=== PATIENT | female | born 1995 | race Caucasian/White ===

== ENCOUNTER 2017-01-02 17:43 | Outpatient (CLI) | payer MEDICAID, OTHER ==
[~2017-01-02] VITALS: Ht 154.9 cm; Wt 73.9 kg
[2017-01-02 18:04] VITALS: BP 123/77
[2017-01-02] MEDS ORDERED: PNV11TAB5 PO (18:40)
[2017-01-02] MEDS ORDERED: DOXY1TAB3 PO (18:43)
[2017-01-02 18:53] VITALS: BP 113/68
--- NOTE | 2017-01-04 14:18 | Physician Query-Final Dx ---
PETER SOMMERS 01/04/17 1418: Clinic Account Progress/Dx Physician Query: Please give diagnosis Date of Service Jan 02, 2017 at 17:43 RODRIGUEZ CORDERO MD 01/05/17 0738: Clinic Account Progress/Dx DIAGNOSIS: Diagnosis decreased movement PETER SOMMERS Jan 04, 2017 14:18 RODRIGUEZ CORDERO MD Jan 05, 2017 07:38
[2017-01-22] MEDS ORDERED: DOCU100C37 PO (08:28)
[2017-01-22] MEDS ORDERED: IBUP-1773 PO (08:28)
[2017-01-22] MEDS ORDERED: OXYC-471 PO (08:28)
[2017-01-22] MEDS ORDERED: FERR-74 PO (08:28)
== END 2017-01-02 19:50 | disposition home or self-care (01) ==
LOC: WSo 17:43 → LDRP 17:46 → WSo 19:50
PROVIDERS: ATTEND Obstetrics & Gynecology
DX: O36.8130 Decreased fetal movements, third trimester, not applicable or unspecified (principal); Z3A.37 37 weeks gestation of pregnancy
CPT/HCPCS: 99213

== ENCOUNTER 2017-01-18 11:56 | Outpatient (CLI) | payer MEDICAID ==
[~2017-01-18] VITALS: Ht 154.9 cm; Wt 75.7 kg
[~2017-01-18 11:56] MED LIST: DOXY1TAB3 PO; PNV11TAB5 PO
[2017-01-18 11:58] VITALS: BP 114/72
[2017-01-18] MEDS ORDERED: D5 LR IV SOLUTION 1,000 ML IV ONE (12:24)
[2017-01-18] MEDS ORDERED: D5 LR IV SOLUTION 1,000 ML IV SCH (12:45)
[2017-01-18 12:57] LABS: BASOPHILS % (AUTO) 0 % (0-10); EOSINOPHILS # (AUTO) 0.1 10^3/uL (0.0-0.3); EOSINOPHILS % (AUTO) 1 % (0-10); LYMPHOCYTES # (AUTO) 1.5 X 10^3 (1.0-4.0); LYMPHOCYTES % (AUTO) 15 % (12-44); MEAN CORPUSCULAR HEMOGLOBIN 30 PG (25-34); MEAN CORPUSCULAR HGB CONC 33 G/DL (32-36); MEAN CORPUSCULAR VOLUME 92 FL (80-99); MEAN PLATELET VOLUME 12.2 FL (7.4-10.4); MONOCYTES # (AUTO) 0.5 X 10^3 (0.0-1.0); MONOCYTES % (AUTO) 5 % (0-12); NEUTROPHILS # (AUTO) 7.9 X 10^3 (1.8-7.8); NEUTROPHILS % (AUTO) 78 % (42-75); PLATELET COUNT 243 10^3/uL (130-400); RED BLOOD COUNT 3.77 10^6/uL (4.35-5.85); RED CELL DISTRIBUTION WIDTH 13.4 % (10.0-14.5); WHITE BLOOD COUNT 10.1 10^3/uL (4.3-11.0)
[2017-01-18 12:58] LABS: BILIRUBIN,URINE NEGATIVE (NEGATIVE); KETONES,URINE NEGATIVE (NEGATIVE); LEUKOCYTE ESTERASE ,URINE 3+ (NEGATIVE); NITRITE,URINE NEGATIVE (NEGATIVE); PH,URINE 7 (5-9); PROTEIN,URINE 1+ (NEGATIVE); UROBILINOGEN,URINE NORMAL (NORMAL)
[2017-01-18 13:16] LABS: CALCIUM OXALATE CRYSTALS,UR RARE /LPF
[2017-01-18 13:24] LABS: PROTEIN/CREATININE RATIO 0.06
[2017-01-18 14:00] VITALS: BP 113/69
[2017-01-18] MEDS ORDERED: FLU TRIvalent (5 YOA+) 2016-17 (AFLURIA) 0.5 ML IM ONE (14:30)
--- NOTE | 2017-01-19 11:24 | Physician Query-Final Dx ---
JAIRO GREEN 01/19/17 1124: Final Diagnosis Give Final Diagnosis Please give Final Diagnosis RODRIGUEZ CORDERO MD 01/19/17 1729: Final Diagnosis Give Final Diagnosis decreased movement JAIRO GREEN Jan 19, 2017 11:24 RODRIGUEZ CORDERO MD Jan 19, 2017 17:29
[2017-01-22] MEDS ORDERED: DOCU100C37 PO (08:28)
[2017-01-22] MEDS ORDERED: FERR-74 PO (08:28)
[2017-01-22] MEDS ORDERED: OXYC-471 PO (08:28)
[2017-01-22] MEDS ORDERED: IBUP-1773 PO (08:28)
== END 2017-01-18 15:23 | disposition home or self-care (01) ==
LOC: WSo 11:56 → LDRP 11:56 → WSo 15:23
PROVIDERS: ATTEND Obstetrics & Gynecology
DX: O36.8130 Decreased fetal movements, third trimester, not applicable or unspecified (principal); Z3A.39 39 weeks gestation of pregnancy
CPT/HCPCS: 36415; 81000; 82570; 84156; 85025; 87088; 96360; 96361; 99214

== ENCOUNTER 2017-01-21 00:41 | Inpatient (IN) | payer MEDICAID ==
[~2017-01-21] VITALS: Ht 154.9 cm; Wt 76.0 kg
[2017-01-21] VITALS (44 sets, daily range): BP systolic 93–153; BP diastolic 52–86
--- OUTSIDE RECORDS SUMMARY | 2017-01-21 00:44 | XMS REPORT | Continuity of Care Document ---
Author Author [facility] [address] [facility] Organization [facility] [address] Address Unknown Phone Unavailable Care Team Providers Care Chief Engineering Division Name Role Phone LIDIA URIBE MD PCP Insurance Providers Payer Name Policy Number Subscriber Name Relationship [facility] [employer] [id number] Lisseth Hernandez 20 Self / Same As Patient Advance Directives Directive Response Recorded Date/Time Advance Directives No 01/18/17 1:00pm Health Care Power of Pool Table Operator No 01/18/17 1:00pm Organ Donor Yes 01/18/17 1:00pm Resuscitation Status Full Code 01/18/17 1:00pm Problems No problem information available. Medications Current Home Medications Medication Dose Units Route Directions Days/Qty Instructions Start Date Vvm993/Fa/Omega3/Dha/Fish Oil 1 Each 1 Each Oral Daily 01/02/17 Past Home Medications Medication Directions Ordered Status Doxylamine/Pyridoxine Hcl 1 Each Tablet.dr, 1 Each Oral Bedtime 01/02/17 Discontinued Social History Social History Problem Response Recorded Date/Time Recent Foreign Travel No 01/18/2017 1:00pm Recent Infectious Disease Exposure No 01/18/2017 1:00pm Smoking Status Former Smoker 01/18/2017 1:00pm Type Used Cigarettes 01/18/2017 1:00pm Query Response Start Date Stop Date Smoking Status Former Smoker Hospital Discharge Instructions No hospital discharge instructions. Plan of Care Discharge Date 01/18/17 3:23pm Instructions/Education Provided OB OUTPATIENT DISCHARGE How to Tell When Labor Starts Prescriptions See Medication Section Functional Status No functional status results. Allergies, Adverse Reactions, Alerts No known allergies. Immunizations Name Given Type FLU TRIvalent 5 years - Adult 01/18/17 Administered Vital Signs Acute Vital Signs Vital Response Date/Time Temperature (Fahrenheit) 97.1 degrees F (97.6 - 99.5) 01/02/2017 6:04pm Temperature (Calculated Celsius) 36.89968 degrees C (36.4 - 37.5) 01/02/2017 6:04pm Temperature Source Tympanic 01/02/2017 6:04pm Pulse Rate (adult) 85 bpm (60 - 90) 01/02/2017 6:53pm Respiratory Rate 18 bpm (12 - 24) 01/02/2017 6:53pm O2 Sat by Pulse Oximetry 98 % (88 - 100) 01/02/2017 6:04pm Blood Pressure 113/68 mm Hg 01/02/2017 6:53pm Blood Pressure Mean 83 mm Hg 01/02/2017 6:53pm Pain Numeric Pain Scale 3 01/18/2017 1:00pm Height (Feet) 5 feet 01/18/2017 1:00pm Height (Inches) 1.00 inches 01/18/2017 1:00pm Height (Calculated Centimeters) 154.771243 cm 01/18/2017 1:00pm Weight (Pounds) 167 pounds 01/18/2017 1:00pm Weight (Ounces) 0.0 oz 01/18/2017 1:00pm Weight (Calculated Grams) 53865.93 gm 01/18/2017 1:00pm Weight (Calculated Kilograms) 75.435305 kilograms 01/18/2017 1:00pm Calculated BMI 31.6 01/18/2017 1:00pm Results Pending Laboratory Results Test Name Collection Date/Time Procedures No known history of procedures. Encounters Encounter Location Arrival/Admit Date Discharge/Depart Date Attending Provider Departed Clinic [facility] [address] 01/18/17 11:56am 01/18/17 3: 23pm RODRIGUEZ CORDERO MD Departed Clinic [facility] [address] 01/02/17 5:43pm 01/02/17 7: 50pm RODRIGUEZ CORDERO MD
[2017-01-21] MEDS ORDERED: MINERAL OIL CONCENTRATE 99.9% 15 ML UDC TOP PRN (02:15)
[2017-01-21] MEDS ORDERED: AMPICILLIN INJECTION 2,000 MG in NS (IVPB) 50 ML IV SCH (02:15)
[2017-01-21] MEDS ORDERED: AMPICILLIN 2000 MG INJECTION (IM/IV) ONE (02:19)
[2017-01-21] MEDS ORDERED: NS (IVPB) 50 ML ONE ×2 (02:20→17:29)
[2017-01-21] MEDS ORDERED: MISOPROSTOL 100 MCG (CYTOTEC) TAB PV SCH (02:30)
[2017-01-21] MEDS: D5 LR IV SOLUTION 1,000 ML IV SCH ×2 (02:47→11:03)
[2017-01-21 03:13] LABS: BILIRUBIN,URINE NEGATIVE (NEGATIVE); KETONES,URINE NEGATIVE (NEGATIVE); LEUKOCYTE ESTERASE ,URINE 2+ (NEGATIVE); NITRITE,URINE NEGATIVE (NEGATIVE); PH,URINE 6 (5-9); PROTEIN,URINE 1+ (NEGATIVE); UROBILINOGEN,URINE NORMAL (NORMAL)
[2017-01-21] MEDS ORDERED: LACTATED RINGERS 1,000 ML IV ONE ×3 (03:15→13:18)
[2017-01-21 03:18] LABS: BASOPHILS % (AUTO) 0 % (0-10); EOSINOPHILS # (AUTO) 0.2 10^3/uL (0.0-0.3); EOSINOPHILS % (AUTO) 1 % (0-10); LYMPHOCYTES # (AUTO) 1.9 X 10^3 (1.0-4.0); LYMPHOCYTES % (AUTO) 15 % (12-44); MEAN CORPUSCULAR HEMOGLOBIN 31 PG (25-34); MEAN CORPUSCULAR HGB CONC 34 G/DL (32-36); MEAN CORPUSCULAR VOLUME 92 FL (80-99); MEAN PLATELET VOLUME 12.4 FL (7.4-10.4); MONOCYTES # (AUTO) 0.8 X 10^3 (0.0-1.0); MONOCYTES % (AUTO) 6 % (0-12); NEUTROPHILS # (AUTO) 9.9 X 10^3 (1.8-7.8); NEUTROPHILS % (AUTO) 77 % (42-75); PLATELET COUNT 247 10^3/uL (130-400); RED BLOOD COUNT 3.59 10^6/uL (4.35-5.85); RED CELL DISTRIBUTION WIDTH 13.7 % (10.0-14.5); WHITE BLOOD COUNT 12.8 10^3/uL (4.3-11.0)
[2017-01-21 03:22] LABS: SQUAMOUS EPITHELIAL CELL,UR 25-50 /HPF; WBC,URINE 25-50 /HPF
[2017-01-21] MEDS ORDERED: CATHETER FLUSH 10 ML SYR IV SCH (06:00)
[2017-01-21] MEDS: AMPICILLIN INJECTION 1,000 MG in NS (IVPB) 50 ML IV SCH ×3 (06:59→15:21)
[2017-01-21] MEDS ORDERED: FLU TRIvalent (5 YOA+) 2016-17 (AFLURIA) 0.5 ML IM ONE (07:15)
--- NOTE | 2017-01-21 08:35 | History & Physical-OB ---
OB - Chief Complaint & HPI Date Date of Admission: Date of Admission: Jan 21, 2017 at 02:07 Chief Complaint/History OB-Reason for Admission/Chief: Onset of Labor Hx : 1 Hx Para: 0 Expected Date of Delivery: Jan 20, 2017 Gestational Age in Weeks: 40 Gestational Age in Days: 1 Other reason for admission: 21 y/o G1 @ 40w1d presenting with CTX Cervix relatively unchanged from office but with painful ctx and at EDC, decision was made to keep pt and augment labor with cytotec SROM occurred around 0600 with clear fluid No VB, fetus active. c/b n/v of , ASB of , GBS+, h/o tobacco use and THC use. History of Labs O+ Antibody neg RI Hep B neg HIV neg RPR NR GBS+ GC/CT neg/neg Allergies and Home Medications Allergies Coded Allergies: No Known Drug Allergies (Unverified , 01/02/17) Home Medications Avo470/FA/Omega3/Dha/Fish Oil 1 Each Tab.chew 1 EACH PO DAILY (Reported) OB - History Hx of Present Care: Yes Ultrasounds: Normal mid trimester US Obstetrical Complications: Other (n/v of , ASB) Medical Complications: Other (h/o THC, tobacco use (none currently, UDS neg on intake in Dec - transferred care from another OBGYN)) Information Induced Hypertension: No Maternal Gestational Diabetes: No Hemorrhage: No Obstetrical History Hx : 1 Hx Para: 0 Hx Total # of Abortions (Spona: 0 Delivery History Adverse Rxn to Tranfusion: No Patient Past Medical History see above Social History/Family History Recent Infectious Disease Expo: No Alcohol Use: Denies Use Recreational Drug Use: No Immunizations Hepatitis A: Yes Hepatitis B: Yes Tetanus Booster (TDap): Less than 5yrs (11/04/16) Rubella: immune RPR/VDRL: Negative GBS Status: Negative HBsAG: Negative OB - Admission Exam Physical Exam Vitals: Vital Signs 01/21/17 01/21/17 02:00 07:00 Temp 98.7 Pulse 87 Resp 16 B/P 117/80 O2 Delivery Room Air HEENT: NCAT Heart: Rhythm Normal Lungs: Clear Abdomen: Gravid Extremities: Normal Reflexes: Normal Cervical Dilatation: 1cm Effacement: 75% Station: -2 Membranes: Ruptured Amniotic Fluid: Clear Heart Rate: 130's Accelerations: Accelerations Present Decelerations: No Decelerations Short Term Variability: Present Mcfp Variability: Average (6-25) Contractions on Admission: < 5 Minutes Apart Labs Laboratory Tests Test 01/21/17 02:15 Range/Units Basophils # (Auto) 0.0 0.0-0.1 10^3/uL Basophils (%) (Auto) 0 0-10 % Eosinophils # (Auto) 0.2 0.0-0.3 10^3/uL Eosinophils (%) (Auto) 1 0-10 % Hematocrit 33 L 35-52 % Hemoglobin 11.2 L 11.5-16.0 G/DL Lymphocytes # (Auto) 1.9 1.0-4.0 X 10^3 Lymphocytes (%) (Auto) 15 12-44 % Mean Corpuscular Hemoglobin 31 25-34 PG Mean Corpuscular Hemoglobin Concent 34 32-36 G/DL Mean Corpuscular Volume 92 80-99 FL Mean Platelet Volume 12.4 H 7.4-10.4 FL Monocytes # (Auto) 0.8 0.0-1.0 X 10^3 Monocytes (%) (Auto) 6 0-12 % Neutrophils # (Auto) 9.9 H 1.8-7.8 X 10^3 Neutrophils (%) (Auto) 77 H 42-75 % Platelet Count 247 130-400 10^3/uL Red Blood Count 3.59 L 4.35-5.85 10^6/uL Red Cell Distribution Width 13.7 10.0-14.5 % Urine Bacteria FEW H /HPF Urine Bilirubin NEGATIVE NEGATIVE Urine Casts NONE /LPF Urine Clarity CLEAR Urine Color YELLOW Urine Crystals NONE /LPF Urine Culture Indicated YES Urine Glucose (UA) NEGATIVE NEGATIVE Urine Ketones NEGATIVE NEGATIVE Urine Leukocyte Esterase 2+ H NEGATIVE Urine Mucus SMALL H /LPF Urine Nitrite NEGATIVE NEGATIVE Urine Protein 1+ H NEGATIVE Urine RBC 10-25 H /HPF Urine RBC (Auto) 4+ H NEGATIVE Urine Specific [place] 1.015 L 1.016-1.022 Urine Squamous Epithelial Cells 25-50 H /HPF Urine Urobilinogen NORMAL NORMAL MG/DL Urine WBC 25-50 H /HPF Urine pH 6 5-9 White Blood Count 12.8 H 4.3-11.0 10^3/uL OB - Assessment/Plan/Diagnosis Plan Other Plan 21 y/o G1 @ 40w1d with latent labor, admitted for augmentation of labor with subsequent SROM. GBS+ H/o THC, tobacco use ASB of Rh+ RI Oral cytotec this AM for cervical ripening (s/p one dose of cytotec overnight vaginally) Ampicillin for GBS ppx ASVD SS consult for h/o THC use LIDIA URIBE MD Jan 21, 2017 08:34
[2017-01-21] MEDS: fentaNYL INJECTION 100 MCG/2 ML AMP IVP PRN ×2 (09:02→10:08)
[2017-01-21] MEDS ORDERED: MISOPROSTOL 100 MCG (CYTOTEC) TAB PO ONE (11:15)
--- NOTE | 2017-01-21 12:44 | Progress Note-Standard ---
Standard Progress Note Progress Notes/Assess & Plan Date Seen 01/21/17 Assess & Plan/Chief Complaint HD#2 Wants epidural Vital Sign - Last 12Hours 01/21/17 01/21/17 01/21/17 01/21/17 02:00 04:00 05:00 06:00 Temp 98.7 Pulse 88 84 90 88 Resp 16 16 16 B/P 128/76 122/74 116/74 120/75 O2 Delivery Room Air Room Air Room Air Room Air 01/21/17 01/21/17 01/21/17 01/21/17 07:00 07:30 08:00 08:30 Temp 99.4 Pulse 87 90 81 93 Resp 16 18 18 18 B/P 117/80 113/64 114/73 121/72 O2 Delivery Room Air Room Air Room Air Room Air 01/21/17 01/21/17 01/21/17 01/21/17 09:00 09:30 10:00 10:30 Pulse 82 87 88 86 Resp 18 20 20 20 B/P 116/74 112/64 123/67 118/72 O2 Delivery Room Air Room Air Room Air Room Air 01/21/17 11:00 Temp 99.1 Pulse 91 Resp 20 B/P 129/75 O2 Delivery Room Air Gen mild distress w ctx SVE 2/80/-2, thin mec noted FHT 145/mod branden/reactive, occasional variables with jolanta > 90 lasting < 60 seconds just after SROM of forebag 21 y/o G1 @ 40w1d with latent labor, admitted for augmentation of labor with subsequent SROM. Meconium stained amniotic fluid GBS+ H/o THC, tobacco use ASB of Rh+ RI S/p oral cytotec at 1100, will recheck around 1500 and start pitocin if not continuing to make cervical change Ampicillin for GBS ppx ASVD Labs Laboratory Tests 01/21/17 02:15 LIDIA URIBE MD Jan 21, 2017 12:44
[2017-01-21] MEDS ORDERED: LIDOCAINE PF 2% 10 ML (XYLOCAINE) AMP ONE ×2 (12:49→17:28)
[2017-01-21] MEDS ORDERED: BUPIVACAINE 0.25% 30 ML (SENSORCAINE) VIAL ONE (12:49)
[2017-01-21] MEDS ORDERED: fentaNYL INJECTION 100 MCG/2 ML AMP ONE ×2 (12:49→17:35)
[2017-01-21] MEDS ORDERED: SUFENTA 0.6MCG/ML BUPIVA 0.125 100 ML ONE (12:54)
[2017-01-21] MEDS ORDERED: ONDANSETRON 4 MG/2 ML (SDV) Z0FRAN IV PRN (13:30)
[2017-01-21] MEDS ORDERED: NALOXONE 0.4 MG/ML 1 ML (NARCAN) VIAL IV PRN (13:30)
[2017-01-21] MEDS ORDERED: EPIDURAL (SUFENTA 0.6MCG/ML BUPIVA 0.125%) 100 ML BAG EPI PRN (13:30)
[2017-01-21] MEDS ORDERED: diphenhydrAMINE 50 MG/ML INJ (BENADRYL) IV PRN (13:30)
[2017-01-21] MEDS ORDERED: OXYTOCIN/NORMAL SALINE 500 ML IV ONE (15:39)
[2017-01-21] MEDS ORDERED: OXYTOCIN/NORMAL SALINE 500 ML IV SCH (15:45)
[2017-01-21] MEDS ORDERED: ONDANSETRON 4 MG/2 ML (SDV) Z0FRAN ONE (17:28)
[2017-01-21] MEDS ORDERED: KETAMINE HCL 100 MG/ML 5 ML VIAL ONE (17:28)
[2017-01-21] MEDS ORDERED: DEXAMETHASONE PF 10 MG/ML (DECADRON) VIAL ONE (17:28)
[2017-01-21] MEDS ORDERED: OXYTOCIN/NORMAL SALINE 1,000 ML IV ONE (17:28)
[2017-01-21] MEDS ORDERED: ceFAZolin 1,000 MG (ANCEF) VIAL ONE (17:29)
[2017-01-21] MEDS ORDERED: KETOROLAC 30 MG/ML VIAL ONE (17:29)
[2017-01-21] MEDS ORDERED: METOCLOPRAMIDE INJ 10 MG/2 ML (REGLAN) IV ONE (17:30)
[2017-01-21] MEDS ORDERED: CITRIC ACID/SOB CIT (BICITRA) 30 ML UDC PO ONE (17:30)
[2017-01-21] MEDS ORDERED: ceFAZolin INJECTION 1,000 MG in NS (IVPB) 50 ML IV ONE (17:30)
[2017-01-21] MEDS ORDERED: LACTATED RINGERS 2,000 ML IV ONE (17:30)
[2017-01-21] MEDS ORDERED: FAMOTIDINE 20MG/2ML IV (PEPCID) IV ONE (17:30)
--- NOTE | 2017-01-21 17:31 | Progress Note-Standard ---
Standard Progress Note Progress Notes/Assess & Plan Date Seen 01/21/17 Assess & Plan/Chief Complaint Update Note I reviewed with Lola and her family the labor course thus far. Unfortunately she has progressed to 4cm, however her fetus is not tolerating labor. The strip is category 2, with recurrent variable decelerations with a late component when pitocin is on. Without pitocin, there are some variable decelerations. We have tried multiple resuscitative measures without improvement. Being remote from delivery, I recommend a delivery. Lisseth understands this and agrees. We reviewed risks including but not limited to bleeding, infection, damage to surrounding structures (infant or mother). Will proceed with CD at this time. Labs Laboratory Tests 01/21/17 02:15 LIDIA URIBE MD Jan 21, 2017 17:31
--- NOTE | 2017-01-21 17:35 | Cesarean Section Operative ---
Procedure Procedure Note Date of Procedure: 01/21/17 Pre-operative Diagnosis: Lisseth Adrian is a 21 y/o G1 @ 40w1d with intolerance to labor, persistent category 2 tracing Augmentation of latent labor GBS+ H/o THC, tobacco use Teen Asymptomatic bacteriuria of Post-operative Diagnosis: Same Procedure: Primary low transverse section Physician: Lulu Gu MD Estimated blood loss: 500 mL Disposition: Recovery room, stable Findings: Viable male , Apgars pending, weight 8lb7oz, intact placenta, 3vc, normal appearing uterus, tubes, and ovaries. Indications:Lisseth Adrian is a 21 y/o G1 @ 40w1d who presented in latent labor. Her labor was augmented with cytotec. She had SROM with meconium stained amniotic fluid. She received an epidural for analgesia. Pitocin was started for augmentation of labor. The fetus had notable recurrent variable decelerations with periods of minimal variability. She pitocin was stopped for over 30 minutes and upon restarting, variable decelerations with a late component were noted. Despite resuscitative measures, the category 2 tracing persisted and she was counseled that being remote from delivery (4cm) it was advised she undergo delivery. Procedure Details: The patient was seen in pre-op and the procedure was discussed with the patient in full, including the risks, benefits, and alternatives. All questions were answered. The patient was taken to the operating room and a time out was performed, verifying patient and procedure. After epidural anesthesia was bolused by our anesthesia colleagues, the patient was placed in the dorsal supine with leftward tilt for uterine displacement. Her abdomen was then prepped and draped in the typical sterile fashion. A Pfannenstiel skin incision was made using a scalpel and carried down through the underlying fascia. The fascia was incised in the midline and tented up using Tyrese clamps. On both the inferior and superior fascia side the rectus muscle was dissected off bluntly and sharply using King scissors. The peritoneum was identified and entered bluntly in the midline. This was then stretched laterally using manual strength. After entering the abdominal cavity and confirming lack of intraperitoneal adhesions, an extra-large Mikhail retractor was placed and the lower uterine segment was visualized. A bladder flap was created with the use of Metzenbaum scissors. A scalpel was utilized to make a low transverse uterine incision. The 's head was grasped and brought to the level of the incision. Fundal pressure was applied and was delivered with some difficulty with the use of the Silastic vacuum device. Mouth and nares were suctioned with bulb suction. After the umbilical cord was clamped and cut, the was handed off to the pediatric staff. A sample of cord blood was then obtained as well as blood gas. The placenta was delivered intact via uterine massage. The uterus was cleared of all clots and debris. The uterine incision was closed using 0 Vicryl in a running locked fashion. A second imbricated layer was placed using 0 Vicryl in a running fashion as well. Again the hysterotomy site was examined and hemostasis was observed. The bilateral tubes and ovaries appeared normal. The abdominal gutters were cleared of all clots and debris. A final check of the uterine incision showed it to be hemostatic. Intercede was placed over the hysterotomy site. The peritoneum was closed using 3-0 Vicryl in a running fashion. The fascia was closed with 0 Vicryl in a running fashion. The subcutaneous space was hemostatic, and irrigated. The subcutaneous space was closed with 3-0 Vicryl in several single interrupted stitches. The skin was then closed using 4-0 Monocryl in a running subcuticular fashion. The skin edges were reapproximated together and were hemostatic. A pressure dressing was applied. All sponge, lap and needle counts were correct at the end of the procedure per nursing. Vitals - Labs Vital Signs - I&O Vital Signs Date Time Temp Pulse Resp B/P Pulse Ox O2 Delivery O2 Flow Rate FiO2 01/21/17 16:30 80 18 123/75 100 Non Rebreather 10.00 01/21/17 16:20 105 18 124/72 100 Non Rebreather 10.00 01/21/17 16:05 100.0 105 18 119/78 98 Room Air 01/21/17 15:50 86 18 126/86 97 Room Air 01/21/17 15:40 88 18 116/65 98 Room Air 01/21/17 15:30 88 18 118/70 100 Non Rebreather 10.00 01/21/17 15:15 79 20 112/63 100 Non Rebreather 10.00 01/21/17 15:00 84 20 115/62 100 Non Rebreather 10.00 01/21/17 14:45 87 18 99/58 99 Room Air 01/21/17 14:30 81 18 95/56 99 Room Air 01/21/17 14:15 90 16 93/54 99 Room Air 01/21/17 14:00 81 16 93/54 98 Room Air 01/21/17 13:55 76 18 101/52 99 Room Air 01/21/17 13:50 80 18 108/55 99 Room Air 01/21/17 13:45 90 18 101/57 99 Room Air 01/21/17 13:40 85 16 153/74 99 Room Air 01/21/17 13:35 109 16 116/63 99 Room Air 01/21/17 13:30 87 16 122/64 99 Room Air 01/21/17 13:25 91 16 119/63 98 Room Air 01/21/17 13:20 90 20 125/71 99 Room Air 01/21/17 13:15 105 20 127/60 99 Room Air 01/21/17 13:10 117 20 139/80 98 Room Air 01/21/17 13:05 106 22 141/77 100 Room Air 01/21/17 13:00 84 20 124/78 Room Air 01/21/17 12:30 87 20 132/78 Room Air 01/21/17 12:00 78 20 120/76 Room Air 01/21/17 11:30 86 20 113/73 Room Air 01/21/17 11:00 99.1 91 20 129/75 Room Air 01/21/17 10:30 86 20 118/72 Room Air 01/21/17 10:00 88 20 123/67 Room Air 01/21/17 09:30 87 20 112/64 Room Air 01/21/17 09:00 82 18 116/74 Room Air 01/21/17 08:30 93 18 121/72 Room Air 01/21/17 08:00 81 18 114/73 Room Air 01/21/17 07:30 99.4 90 18 113/64 Room Air 01/21/17 07:00 87 16 117/80 Room Air 01/21/17 06:00 88 16 120/75 Room Air 01/21/17 05:00 90 16 116/74 Room Air 01/21/17 04:00 84 16 122/74 Room Air 01/21/17 02:00 98.7 88 16 128/76 Room Air Labs Laboratory Tests 01/21/17 02:15: Basophils # (Auto) 0.0, Basophils (%) (Auto) 0, Eosinophils # (Auto) 0.2, Eosinophils (%) (Auto) 1, Hematocrit 33L, Hemoglobin 11.2L, Lymphocytes # (Auto ) 1.9, Lymphocytes (%) (Auto) 15, Mean Corpuscular Hemoglobin 31, Mean Corpuscular Hemoglobin Concent 34, Mean Corpuscular Volume 92, Mean Platelet Volume 12.4H, Monocytes # (Auto) 0.8, Monocytes (%) (Auto) 6, Neutrophils # ( Auto) 9.9H, Neutrophils (%) (Auto) 77H, Platelet Count 247, Red Blood Count 3.59L, Red Cell Distribution Width 13.7, Urine Bacteria FEWH, Urine Bilirubin NEGATIVE, Urine Casts NONE, Urine Clarity CLEAR, Urine Color YELLOW, Urine Crystals NONE, Urine Culture Indicated YES, Urine Glucose (UA) NEGATIVE, Urine Ketones NEGATIVE, Urine Leukocyte Esterase 2+H, Urine Mucus SMALLH, Urine Nitrite NEGATIVE, Urine Protein 1+H, Urine RBC 10-25H, Urine RBC (Auto) 4+H, Urine Specific [place] 1.015L, Urine Squamous Epithelial Cells 25-50H, Urine Urobilinogen NORMAL, Urine WBC 25-50H, Urine pH 6, White Blood Count 12.8H Microbiology 01/21/17 Urine Culture - Preliminary, Resulted LULU GU MD Jan 21, 2017 17:35 LULU GU MD Jan 21, 2017 17:35
--- NOTE | 2017-01-21 17:39 | Discharge Inst-Women's Service ---
Discharge Inst-Women's Serv Depart Medication/Instructions New, Converted or Re-Newed RX: RX on Chart Final Diagnosis TIUP, latent labor, meconium, primary CD, intolerance to labor Consults/Follow Up Additional Follow Up: Yes Orders/Referrals One week with Dr. Gu for incision check [address] Gu for visit Activity Driving Instructions: No Driving for 1 Week (or while taking narcotic pain medications) NO SMOKING: NO SMOKING Nothing Inside Vagina: No Douching, No [place], No Tampons Other Activity No heavy lifting > 10lb, no strenuous activity Diet Discharge Diet: No Restrictions Symptoms to Report to : Bleeding Excessive, Pain Increased, Fever Over 101 Degrees F, Pain/Pressure in Chest, Vaginal Bleeding Increase, Dizziness/Fainting , Nausea/Vomiting, Shortness of Breath For Any Problems or Questions: Contact Your Physician, Go to Emergency Room Skin/Wound Care Infection Signs and Symptoms: Increased Redness, Foul Odor of Wound, Increased Drainage Operative Area Clean and Dry: Keep Incision Clean/Dry Stitches/[place]/Dermabond: Dermabond, Care of Stitches Bathing Instructions: LIDIA Denson MD Jan 21, 2017 17:39
[2017-01-21] MEDS ORDERED: CATHETER FLUSH 10 ML SYR IV PRN (17:45)
[2017-01-21] MEDS ORDERED: ONDANSETRON 4 MG/2 ML (SDV) Z0FRAN IVP PRN (19:00)
[2017-01-21] MEDS ORDERED: MEASLES,MUMPS,RUBELLA 1 EA INJ SC SCH (19:00)
[2017-01-21] MEDS: KETOROLAC 30 MG/ML VIAL IVP SCH ×2 (19:00→23:53)
[2017-01-21] MEDS: OXYTOCIN/NORMAL SALINE 500 ML IV SCH ×2 (19:53→23:53)
[2017-01-21] MEDS: DOCUSATE SODIUM 100 MG (COLACE) CAP PO SCH (20:25)
[2017-01-21] MEDS: oxyCODONE/APAP 5/325MG (PERCOCET 5) TABLET PO PRN (20:26)
[2017-01-21] MEDS: CATHETER FLUSH 10 ML SYR IV SCH (22:00)
[2017-01-22 00:30] VITALS: BP 107/71
[2017-01-22] MEDS: oxyCODONE/APAP 5/325MG (PERCOCET 5) TABLET PO PRN ×3 (04:28→16:23)
[2017-01-22 04:30] VITALS: BP 111/78
[2017-01-22 06:06] LABS: BASOPHILS % (AUTO) 0 % (0-10); EOSINOPHILS % (AUTO) 0 % (0-10); LYMPHOCYTES # (AUTO) 0.8 X 10^3 (1.0-4.0); LYMPHOCYTES % (AUTO) 9 % (12-44); MEAN CORPUSCULAR HEMOGLOBIN 31 PG (25-34); MEAN CORPUSCULAR HGB CONC 33 G/DL (32-36); MEAN CORPUSCULAR VOLUME 93 FL (80-99); MEAN PLATELET VOLUME 11.7 FL (7.4-10.4); MONOCYTES # (AUTO) 0.6 X 10^3 (0.0-1.0); MONOCYTES % (AUTO) 6 % (0-12); NEUTROPHILS # (AUTO) 8.3 X 10^3 (1.8-7.8); NEUTROPHILS % (AUTO) 85 % (42-75); PLATELET COUNT 171 10^3/uL (130-400); RED BLOOD COUNT 2.95 10^6/uL (4.35-5.85); RED CELL DISTRIBUTION WIDTH 13.5 % (10.0-14.5); WHITE BLOOD COUNT 9.7 10^3/uL (4.3-11.0)
[2017-01-22] MEDS: KETOROLAC 30 MG/ML VIAL IVP SCH ×2 (06:35→12:29)
[2017-01-22] MEDS: CATHETER FLUSH 10 ML SYR IV SCH ×2 (06:35→12:29)
--- NOTE | 2017-01-22 08:26 | Postpartum Progress Note ---
Post Op Post-operative Day #1 Subjective: Patient is without complaints. Ambulating, voiding after martínez removed. Tolerating a regular diet without nausea or vomiting. Normal lochia. Pain is well controlled with oral pain medications. Passing flatus. Breast feeding. Objective: Vital Sign - Last 12Hours 01/22/17 01/22/17 00:30 04:30 Temp 98.8 97.3 Pulse 89 105 Resp 18 17 B/P 107/71 111/78 Pulse Ox 94 96 O2 Delivery Room Air Room Air Intake and Output 01/22/17 00:00 Intake Total 550 ml Output Total 575 ml Balance -25 ml Physical Exam: General - Alert and oriented, no apparent distress Abdomen - Soft, appropriately tender to palpation, non-distended, fundus firm at umbilicus Incision - clean, dry and intact; no erythema or induration, no drainage Extremities - trace bilat LE edema, negative Candy's bilaterally Laboratory Tests 01/22/17 05:35: Basophils # (Auto) 0.0, Basophils (%) (Auto) 0, Eosinophils # (Auto) 0.0, Eosinophils (%) (Auto) 0, Hematocrit 27L, Hemoglobin 9.0L, Lymphocytes # (Auto) 0.8L, Lymphocytes (%) (Auto) 9L, Mean Corpuscular Hemoglobin 31, Mean Corpuscular Hemoglobin Concent 33, Mean Corpuscular Volume 93, Mean Platelet Volume 11.7H, Monocytes # (Auto) 0.6, Monocytes (%) (Auto) 6, Neutrophils # ( Auto) 8.3H, Neutrophils (%) (Auto) 85H, Platelet Count 171, Red Blood Count 2.95L, Red Cell Distribution Width 13.5, White Blood Count 9.7 Microbiology 01/21/17 Urine Culture - Preliminary, Resulted Assessment: 21 y/o post-operative day # 1, status post PLTCS for intolerance to labor. Recovering well, hemodynamically stable Acute blood loss anemia 9 Plan: Routine post-operative care. Encourage breast feeding. Encourage ambulation. VTE prophylaxis: SCDs. Ferrous sulfate supplementation. Plan for discharge POD#2 or 3. Vitals - Labs Vital Signs - I&O Vital Signs Date Time Temp Pulse Resp B/P Pulse Ox O2 Delivery O2 Flow Rate FiO2 01/22/17 04:30 97.3 105 17 111/78 96 Room Air 01/22/17 00:30 98.8 89 18 107/71 94 Room Air 01/21/17 20:00 98.6 90 18 109/69 95 Room Air 01/21/17 17:15 85 20 140/86 100 Non Rebreather 10.00 01/21/17 17:00 82 20 124/76 100 Non Rebreather 10.00 01/21/17 16:45 78 20 120/73 100 Non Rebreather 10.00 01/21/17 16:30 80 18 123/75 100 Non Rebreather 10.00 01/21/17 16:20 105 18 124/72 100 Non Rebreather 10.00 01/21/17 16:05 100.0 105 18 119/78 98 Room Air 01/21/17 15:50 86 18 126/86 97 Room Air 01/21/17 15:40 88 18 116/65 98 Room Air 01/21/17 15:30 88 18 118/70 100 Non Rebreather 10.00 01/21/17 15:15 79 20 112/63 100 Non Rebreather 10.00 01/21/17 15:00 84 20 115/62 100 Non Rebreather 10.00 01/21/17 14:45 87 18 99/58 99 Room Air 01/21/17 14:30 81 18 95/56 99 Room Air 01/21/17 14:15 90 16 93/54 99 Room Air 01/21/17 14:00 81 16 93/54 98 Room Air 01/21/17 13:55 76 18 101/52 99 Room Air 01/21/17 13:50 80 18 108/55 99 Room Air 01/21/17 13:45 90 18 101/57 99 Room Air 01/21/17 13:40 85 16 153/74 99 Room Air 01/21/17 13:35 109 16 116/63 99 Room Air 01/21/17 13:30 87 16 122/64 99 Room Air 01/21/17 13:25 91 16 119/63 98 Room Air 01/21/17 13:20 90 20 125/71 99 Room Air 01/21/17 13:15 105 20 127/60 99 Room Air 01/21/17 13:10 117 20 139/80 98 Room Air 01/21/17 13:05 106 22 141/77 100 Room Air 01/21/17 13:00 84 20 124/78 Room Air 01/21/17 12:30 87 20 132/78 Room Air 01/21/17 12:00 78 20 120/76 Room Air 01/21/17 11:30 86 20 113/73 Room Air 01/21/17 11:00 99.1 91 20 129/75 Room Air 01/21/17 10:30 86 20 118/72 Room Air 01/21/17 10:00 88 20 123/67 Room Air 01/21/17 09:30 87 20 112/64 Room Air 01/21/17 09:00 82 18 116/74 Room Air 01/21/17 08:30 93 18 121/72 Room Air I & O 01/22/17 07:00 Intake Total 1850 ml Output Total 875 ml Balance 975 ml Labs Laboratory Tests 01/22/17 05:35: Basophils # (Auto) 0.0, Basophils (%) (Auto) 0, Eosinophils # (Auto) 0.0, Eosinophils (%) (Auto) 0, Hematocrit 27L, Hemoglobin 9.0L, Lymphocytes # (Auto) 0.8L, Lymphocytes (%) (Auto) 9L, Mean Corpuscular Hemoglobin 31, Mean Corpuscular Hemoglobin Concent 33, Mean Corpuscular Volume 93, Mean Platelet Volume 11.7H, Monocytes # (Auto) 0.6, Monocytes (%) (Auto) 6, Neutrophils # ( Auto) 8.3H, Neutrophils (%) (Auto) 85H, Platelet Count 171, Red Blood Count 2.95L, Red Cell Distribution Width 13.5, White Blood Count 9.7 Microbiology 01/21/17 Urine Culture - Preliminary, Resulted LIDIA URIBE MD Jan 22, 2017 08:26
[2017-01-22] MEDS ORDERED: DOCU100C37 PO (08:28)
[2017-01-22] MEDS ORDERED: FERR-74 PO (08:28)
[2017-01-22] MEDS ORDERED: IBUP-1773 PO (08:28)
[2017-01-22] MEDS ORDERED: OXYC-471 PO (08:28)
[2017-01-22 09:02] VITALS: BP 123/75
[2017-01-22] MEDS: FERROUS SULF 325 MG (IRON) TAB PO SCH ×2 (10:13→18:11)
[2017-01-22] MEDS: DOCUSATE SODIUM 100 MG (COLACE) CAP PO SCH (10:13)
--- NOTE | 2017-01-22 10:30 | Anesthesia-Regional Post-Op ---
Regional Patient Condition Mental Status: Alert, Oriented x3 Circulation: Same as Pre-Op Headache: Absent Sensation: Full Recovery Motor Block: Absent Post Op Complications Complications None Follow Up Care/Instructions Patient Instructions None needed. Anesthesia/Patient Condition Patient is doing well, no complaints, stable vital signs, no apparent adverse anesthesia problems. No complications reported per nursing. MAJO WILSON CRNA Jan 22, 2017 10:30
[2017-01-22 12:27] VITALS: BP 121/76
[2017-01-22 16:19] VITALS: BP 123/74
[2017-01-22] MEDS ORDERED: IBUPROFEN 800 MG (MOTRIN) TAB PO SCH (18:00)
[2017-01-22] MEDS: IBUPROFEN 600 MG (MOTRIN) TAB PO SCH (18:11)
[2017-01-22 19:45] VITALS: BP 121/72
[2017-01-23] MEDS: IBUPROFEN 600 MG (MOTRIN) TAB PO SCH ×3 (00:15→14:29)
[2017-01-23] MEDS: DOCUSATE SODIUM 100 MG (COLACE) CAP PO SCH ×2 (00:15→07:43)
[2017-01-23 02:37] VITALS: BP 119/73
[2017-01-23 07:42] VITALS: BP 111/73
[2017-01-23] MEDS: FERROUS SULF 325 MG (IRON) TAB PO SCH (08:21)
--- NOTE | 2017-01-23 10:20 | Postpartum Progress Note ---
Post Op Post-operative Day #2 Subjective: Patient is without complaints. Ambulating, voiding. Tolerating a regular diet without nausea or vomiting. Normal lochia. Pain is well controlled with oral pain medications. Passing flatus. Breast feeding. Objective: Vital Sign - Last 12Hours 01/23/17 01/23/17 02:37 07:42 Temp 98.3 97.6 Pulse 85 80 Resp 18 18 B/P 119/73 111/73 Pulse Ox 97 97 O2 Delivery Room Air Room Air Intake and Output 01/23/17 00:00 Intake Total 600 ml Output Total 800 ml Balance -200 ml Physical Exam: General - Alert and oriented, no apparent distress Abdomen - Soft, appropriately tender to palpation, non-distended, fundus firm at umbilicus Incision - clean, dry and intact; no erythema or induration, no drainage Extremities - no edema, negative Candy's bilaterally Microbiology 01/21/17 Urine Culture - Final, Complete Assessment: 21 y/o post-operative day #2, status post PLTCS for intolerance to labor. Recovering well, hemodynamically stable Acute blood loss anemia 9 Plan: Routine post-operative care. Encourage breast feeding. Encourage ambulation. VTE prophylaxis: SCDs. Ferrous sulfate supplementation. Plan for discharge POD#2 or 3 - will let us know if she would like to go home today. Vitals - Labs Vital Signs - I&O Vital Signs Date Time Temp Pulse Resp B/P Pulse Ox O2 Delivery O2 Flow Rate FiO2 01/23/17 07:42 97.6 80 18 111/73 97 Room Air 01/23/17 02:37 98.3 85 18 119/73 97 Room Air 01/22/17 19:45 98.2 92 18 121/72 98 Room Air 01/22/17 16:19 97.3 105 18 123/74 97 Room Air 01/22/17 12:27 97.7 96 18 121/76 97 Room Air I & O 01/23/17 07:00 Intake Total 600 ml Output Total 800 ml Balance -200 ml Labs Microbiology 01/21/17 Urine Culture - Final, Complete LIDIA URIBE MD Jan 23, 2017 10:20
[2017-01-23 14:28] VITALS: BP 117/79
== END 2017-01-23 16:10 | disposition home or self-care (01) | DRG 765 ==
LOC: WSo 00:41 → LDRP 00:42 → WSo 02:07 → LDRP 02:07
PROVIDERS: ADMIT Obstetrics & Gynecology; ATTEND Obstetrics & Gynecology
PROC: 10D00Z1 Extraction of Products of Conception, Low, Open Approach (ICD-10-PCS; principal; 2017-01-21 17:41)
DX: O62.0 Primary inadequate contractions (principal); O76 Abnormality in fetal heart rate and rhythm complicating labor and delivery; O77.0 Labor and delivery complicated by meconium in amniotic fluid; O26.93 Pregnancy related conditions, unspecified, third trimester; R82.71 Bacteriuria; O90.81 Anemia of the puerperium; D62 Acute posthemorrhagic anemia; O99.824 Streptococcus B carrier state complicating childbirth; Z37.0 Single live birth; Z3A.40 40 weeks gestation of pregnancy
CPT/HCPCS: 36415; 81000; 85025; 86850; 86900; 86901; 87088; 94664; 99212

== ENCOUNTER 2020-07-30 08:40 | Emergency (ER) | payer MEDICAID ==
[~2020-07-30] VITALS: Ht 154.1 cm; Wt 58.6 kg
[~2020-07-30 08:40] MED LIST changes: +DOCU100C37 PO; +FERR325T18 PO; +IBUP-1773 PO; +OXYC-471 PO
[2020-07-30 09:12] LABS: BILIRUBIN,URINE NEGATIVE (NEGATIVE); CLARITY,URINE SL CLOUDY; COLOR,URINE DARK YELLOW; GLUCOSE, URINE (UA) NEGATIVE (NEGATIVE); KETONES,URINE NEGATIVE (NEGATIVE); LEUKOCYTE ESTERASE ,URINE 3+ (NEGATIVE); NITRITE,URINE NEGATIVE (NEGATIVE); PH,URINE 6.5 (5-9); PROTEIN,URINE NEGATIVE (NEGATIVE)
[2020-07-30 09:21] LABS: BACTERIA,URINE MODERATE /HPF; SQUAMOUS EPITHELIAL CELL,UR >50 /HPF; WBC,URINE >100 /HPF
--- NOTE | 2020-07-30 09:31 | NUR ---
CULTURE SWAB GIVEN TO PATIENT TO DO SELF SWAB SENT TO BATHROOM TO OBTAIN.
--- NOTE | 2020-07-30 09:59 | ED Back Pain ---
General Chief Complaint: Back Problems Stated Complaint: BACK PAIN; 10 WKS PREG Nursing Triage Note: AMB TO ROOM IS APX 10 WEEKS PREG ON WEDNESDAY ONSET OF BACK PAIN., CALLED DR CORDERO OFFICE YESTERDAY WAS TOLD BY NURSE IF SHE WAS HURTING THAT BAD JUST GO TO THE ER. . DID LEAVE WORK YESTERDAY. DENIES UTI SYMPTOMS. Nursing Sepsis Screen: No Definite Risk Source of Information: Patient Exam Limitations: No Limitations History of Present Illness Date Seen by Provider: Jul 30, 2020 Time Seen by Provider: 09:14 Initial Comments Here with report of low back pain. Patient is approximately 10 weeks . Denies any specific injury. Does note increased vaginal discharge recently. She is not currently sexually active and has not been since conception. She has been seen and evaluated by her club manager and has negative cultures and has had a normal ultrasound for . Denies vaginal bleeding. Denies dysuria or diarrhea. Timing/Duration: 2-3 Days, Intermittent Severity: Moderate Pain/Injury Location: Back Radiation: Other (none) Method of Injury: Unknown Modifying Factors: Improves With Rest Associated Symptoms: No muscle spasms, No fever, No weakness; lower back pain; No loss of bladder control, No loss of bowel control Allergies and Home Medications Allergies Coded Allergies: No Known Drug Allergies (Unverified , 01/02/17) Home Medications Docusate Sodium 100 Mg Capsule, 100 MG PO BID Prescribed by: LIDIA URIBE on 01/22/17827 Ferrous Sulfate 325 Mg Tablet, 325 MG PO BID WITH MEALS Prescribed by: LIDIA URIBE on 01/22/17827 Ibuprofen 600 Mg Tablet, 600 MG PO Q6H Prescribed by: LIDIA URIBE on 01/22/17827 Oxycodone HCl/Acetaminophen 1 Each Tablet, 1-2 TAB PO Q3H PRN for MODERATE PAIN Prescribed by: LIDIA URIBE on 01/22/17827 [id number]/FA/Omega3/Dha/Fish Oil 1 Each Tab.chew, 1 EACH PO DAILY, (Reported) Patient Home Medication List Home Medication List Reviewed: Yes Review of Systems Constitutional: see HPI; No chills, No fever EENTM: no symptoms reported Respiratory: no symptoms reported Gastrointestinal: abdominal pain (suprapubic); No nausea, No vomiting Genitourinary: discharge; No dysuria, No frequency, No hematuria : Yes Musculoskeletal: back pain; No muscle pain Past Sfdqnql-Notigz-Dgitzm Hx Past Med/Social Hx: Reviewed Nursing Past Med/Soc Hx Patient Social History Alcohol Use: Denies Use Recreational Drug Use: No Smoking Status: Former Smoker Type Used: Cigarettes Former Smoker, Quit: Dec 24, 2016 Recent Foreign Travel: No Contact w/Someone Who Travel: No Recent Infectious Disease Expo: No Recent Hopitalizations: No Immunizations Up To Date Tetanus Booster (TDap): Less than 5yrs PED Vaccines UTD: Yes Seasonal Allergies Seasonal Allergies: No Past Medical History Surgeries: Yes Respiratory: No Cardiac: No Neurological: No Last Menstrual Period: May 08, 2020 Hx : 2 Hx Para: 1 Genitourinary: No Gastrointestinal: No Musculoskeletal: No Endocrine: No HEENT: No Cancer: No Psychosocial: No Integumentary: No Blood Disorders: No Adverse Reaction/Blood Tranf: No Family Medical History Reviewed Nursing Family Hx Physical Exam Vital Signs Vital Signs - First Documented 07/30/20 08:46 Temp 36.4 Pulse 114 Resp 18 B/P (MAP) 148/58 (88) Pulse Ox 100 O2 Delivery Room Air Capillary Refill : Less Than 3 Seconds Height, Weight, BMI Height: 5'1.00" Weight: 167lbs. 8.0oz. [id number]; 24.00 BMI Method: General Appearance: No Apparent Distress, WD/WN Cardiovascular: Regular Rate, Rhythm, No Murmur Respiratory: Lungs Clear, Normal Breath Sounds Gastrointestinal: Soft, Tenderness (suprapubic) Back: Normal Inspection, No Vertebral Tenderness, Other (low back tenderness bilateral) Extremity: Non Tender, No Calf Tenderness Neurologic/Psychiatric: Alert, Oriented x3 Skin: Normal Color, Warm/Dry Progress/Results/Core Measures Results/Orders Lab Results Laboratory Tests Test 07/30/20 09:04 Range/Units Urine Color DARK YELLOW Urine Clarity SL CLOUDY Urine pH 6.5 5-9 Urine Specific [place] 1.020 1.016-1.022 Urine Protein NEGATIVE NEGATIVE Urine Glucose (UA) NEGATIVE NEGATIVE Urine Ketones NEGATIVE NEGATIVE Urine Nitrite NEGATIVE NEGATIVE Urine Bilirubin NEGATIVE NEGATIVE Urine Urobilinogen 0.2 < = 1.0 MG/DL Urine Leukocyte Esterase 3+ H NEGATIVE Urine RBC (Auto) NEGATIVE NEGATIVE Urine RBC NONE /HPF Urine WBC >100 H /HPF Urine Squamous Epithelial Cells >50 H /HPF Urine Crystals NONE /LPF Urine Bacteria MODERATE H /HPF Urine Casts NONE /LPF Urine Mucus NEGATIVE /LPF Urine Culture Indicated YES Micro Results Microbiology 07/30/20 Wet Prep - Final, Complete My Orders Orders - THIERRY PERLA MD Ua Culture If Indicated (07/30/20 08:53) Urine Culture (07/30/20 09:04) Wet Prep (07/30/20 09:23) Us Ob Single Fetus<14 [id number] (07/30/20 09:59) Vital Signs/I&O 07/30/20 08:46 Temp 36.4 Pulse 114 Resp 18 B/P (MAP) 148/58 (88) Pulse Ox 100 O2 Delivery Room Air Blood Pressure Mean: 88 Progress Progress Note : Progress Note Seen and evaluated. UA ordered. Self administer vaginal swab ordered for wet prep. Monitor patient. Patient has not got formal ultrasound here so we will go ahead and order that as well. 1114: Wet prep is positive for bacterial vaginosis. Ultrasound done and shows IUP with appropriate heart rate. Discharged home with return precautions. Patient verbalize understanding instructions and agreement with plan. Diagnostic Imaging Diagonstic Imaging: Ultrasound Plain Films/CT/US/NM/MRI: pelvis Comments [facility], [place] NAME: HALEIGH HERNANDEZ [facility] REC#: [id number] PT STATUS: REG ER : 1995 PHYSICIAN: THIERRY PERLA MD ADMIT DATE: 07/30/20/ER Draft Date of Exam:07/30/20 US OB SINGLE FETUS<14 [id number] PROCEDURE: US OB SINGLE FETUS <14 WKS. TECHNIQUE: Multiple real-time grayscale images were obtained over the gravid uterus in various projections. INDICATION: Lower abdominal pain during . COMPARISON: None available. FINDINGS: There is a gestational sac with a normal morphology. Appropriate position within the upper uterus. The fetus is present with a crown-rump length of 3.7 cm giving an ultrasound age of 10 weeks and 4 days. This gives an estimated due date of 02/21/2021. heart rate is detected at 163 bpm. No zohreh-gestational hemorrhage is appreciated. Both ovaries are visualized and normal in appearance. The right ovary measures 3.3 x 1.5 x 2.8 cm. The left ovary measures 2.0 x 0.9 x 1.6 cm. Blood flow is seen in both ovaries by color Doppler imaging. No concerning adnexal mass or fluid collection. IMPRESSION: 1. Single live intrauterine with a heart rate of 163 bpm. Dictated on workstation # [id number] Dict: 07/30/20 1103 Trans: 07/30/20 1108 [facility] [id number] Interpreted by: YAIR PARMAR MD Electronically signed by: Departure Impression Primary Impression: Bacterial vaginosis Disposition: HOME, SELF-CARE Condition: Improved Departure-Patient Inst. Decision time for Depature: 11:15 Referrals: RODRIGUEZ CORDERO MD Patient Instructions: Bacterial Vaginosis Add. Discharge Instructions: All discharge instructions reviewed with patient and/or family. Voiced understanding. Take medications as directed. Follow-up with your OB doctor for recheck and further evaluation. Call his office for appointment. You may take Tylenol/acetaminophen 1000 mg every 6-8 hours as needed for pain. Drink plenty of fluids and get some rest. Try to eat a normal diet. Scripts Metronidazole (Metronidazole) 500 Mg Tablet 500 MG PO BID, #14 TAB 0 Refills Prov: THIERRY PERLA MD 07/30/20 Copy Copies To 1: RODRIGUEZ CORDERO MD, TIMOTHY D MD Jul 30, 2020 09:59
--- NOTE | 2020-07-30 11:09 | Diagnostic Imaging Report ---
PROCEDURE: US OB SINGLE FETUS <14 WKS. TECHNIQUE: Multiple real-time grayscale images were obtained over the gravid uterus in various projections. INDICATION: Lower abdominal pain during . COMPARISON: None available. FINDINGS: There is a gestational sac with a normal morphology. Appropriate position within the upper uterus. The fetus is present with a crown-rump length of 3.7 cm giving an ultrasound age of 10 weeks and 4 days. This gives an estimated due date of 02/21/2021. heart rate is detected at 163 bpm. No zohreh-gestational hemorrhage is appreciated. Both ovaries are visualized and normal in appearance. The right ovary measures 3.3 x 1.5 x 2.8 cm. The left ovary measures 2.0 x 0.9 x 1.6 cm. Blood flow is seen in both ovaries by color Doppler imaging. No concerning adnexal mass or fluid collection. IMPRESSION: 1. Single live intrauterine with a heart rate of 163 bpm. Dictated by: Dictated on workstation # [id number]
[2020-07-30] MEDS ORDERED: METR-145 PO (11:16)
[2020-07-30 11:51] VITALS: BP 148/58
== END 2020-07-30 11:53 | disposition home or self-care (01) ==
LOC: EDUNIT# 08:40 → ER 08:43
DX: O26.891 Other specified pregnancy related conditions, first trimester (principal); N76.0 Acute vaginitis; Z3A.10 10 weeks gestation of pregnancy; Z87.891 Personal history of nicotine dependence
CPT/HCPCS: 76801; 81000; 87088; 87210; 99282

== ENCOUNTER 2020-11-07 09:28 | Outpatient (CLI) | payer MEDICAID ==
[~2020-11-07] VITALS: Ht 154.9 cm; Wt 62.7 kg
[~2020-11-07 09:28] MED LIST changes: +METR-145 PO
--- NOTE | 2020-11-07 09:35 | NUR ---
HALEIGH HERNANDEZ presented to unit via AMBULATORY from ED, with c/o DECREASED MOVEMENT. HALEIGH HERNANDEZ weighed, gowned, voided, and to bed. EFHM and TOCO applied, VS taken. HALEIGH HERNANDEZ oriented to bed controls, call light, TV, heat, and A/C controls.
[2020-11-07 09:53] VITALS: BP 106/55
[2020-11-07 09:59] VITALS: BP 106/55
--- NOTE | 2020-11-07 10:13 | NUR ---
DR. CORDERO IS ON THE UNIT, NOTIFIED OF PT'S ARRIVAL, C/O, GESTATION, REVIEW OF STRIP. WILL CONTINUE TO MONITOR FOR REACTIVITY.
--- NOTE | 2020-11-07 10:32 | NUR ---
DR. CORDERO TO PT'S BEDSIDE.
--- NOTE | 2020-11-07 10:40 | NUR ---
DR. CORDERO INFORMED THIS RN THAT PT MAY BE DISCHARGED HOME.
--- NOTE | 2020-11-07 10:46 | NUR ---
DISCHARGE PAPERS PROVIDED AND REVIEWED WITH PT, PT VERBALIZES UNDERSTANDING AND YANELI ANY QUESTIONS AT THIS TIME. PAPER SIGNED. PT DISCHARGED FROM -[id number] TO [facility] VIA AMBULATORY IN STABLE CONDITION.
--- NOTE | 2020-11-11 08:40 | Physician Query-Final Dx ---
Clinic Account Progress/Dx Physician Query: Please give diagnosis Please include # weeks gestation Date of Service Nov 07, 2020 at 09:28 ORALIA MEEKS Nov 11, 2020 08:40
== END 2020-11-07 10:46 | disposition home or self-care (01) ==
LOC: WSo 09:28 → LDRP 09:29 → WSo 10:46
PROVIDERS: ATTEND Obstetrics & Gynecology
DX: Z34.90 Encounter for supervision of normal pregnancy, unspecified, unspecified trimester (principal); Z3A.00 Weeks of gestation of pregnancy not specified
CPT/HCPCS: 99212

== ENCOUNTER 2020-11-25 11:10 | Observation (INO) | payer MEDICAID ==
[2020-11-25] VITALS (7 sets, daily range): BP systolic 97–111; BP diastolic 55–63
[~2020-11-25] VITALS: Ht 154.9 cm; Wt 64.2 kg
--- NOTE | 2020-11-25 11:15 | NUR ---
HALEIGH HERNANDEZ presented to unit via from ED, with c/o DECREASED MOVEMENT. HALEIGH HERNANDEZ weighed, gowned, voided, and to bed. EFHM and TOCO applied, VS taken. HALEIGH HERNANDEZ oriented to bed controls, call light, TV, heat, and A/C controls.
--- NOTE | 2020-11-25 12:06 | NUR ---
Dr. Cordon called and notified of pt arrival to unit. Pt is due 02/23 (27.1wks) presenting with decreased movement x 1.5days. Pt also reports having a fever off and on, cough, chest tightness, sore throat, fatigue x1 week. Pt reports having an exposure to COVID two weeks ago today, and presented to urgent care last Wednesday (11/19) for a COVID test, which was negative. notified of SVE, urine dipstick, FHR, and ctx pattern. Orders rec'd for labs and IV.
[2020-11-25] MEDS ORDERED: D5 LR IV SOLUTION 1,000 ML IV ONE (12:14)
[2020-11-25 12:59] LABS: CLARITY,URINE TURBID; COLOR,URINE ORANGE; GLUCOSE, URINE (UA) NEGATIVE (NEGATIVE); KETONES,URINE NEGATIVE (NEGATIVE); LEUKOCYTE ESTERASE ,URINE NEGATIVE (NEGATIVE); NITRITE,URINE NEGATIVE (NEGATIVE); PH,URINE 5.5 (5-9); PROTEIN,URINE TRACE (NEGATIVE)
[2020-11-25 13:05] LABS: BASOPHILS # (AUTO) 0.1 10^3/uL (0.0-0.1); BASOPHILS % (AUTO) 1 % (0-10); EOSINOPHILS % (AUTO) 0 % (0-10); HEMATOCRIT 30 % (35-52); HEMOGLOBIN 9.7 g/dL (11.5-16.0); LYMPHOCYTES # (AUTO) 6.4 10^3/uL (1.0-4.0); LYMPHOCYTES % (AUTO) 71 % (12-44); MEAN CORPUSCULAR HEMOGLOBIN 31 pg (25-34); MEAN CORPUSCULAR HGB CONC 32 g/dL (32-36); MEAN CORPUSCULAR VOLUME 95 fL (80-99); MONOCYTES # (AUTO) 0.3 10^3/uL (0.0-1.0); MONOCYTES % (AUTO) 3 % (0-12); NEUTROPHILS # (AUTO) 2.2 10^3/uL (1.8-7.8); NEUTROPHILS % (AUTO) 24 % (42-75); PLATELET COUNT 192 10^3/uL (130-400); WHITE BLOOD COUNT 9.1 10^3/uL (4.3-11.0)
[2020-11-25 13:14] LABS: BACTERIA,URINE NEGATIVE /HPF; RBC,URINE RARE /HPF
[2020-11-25 13:15] LABS: AMORPHOUS SEDIMENT,UR MOD AMOR URATES /LPF; BILIRUBIN,URINE 1+ (NEGATIVE)
[2020-11-25 13:21] LABS: ALANINE AMINOTRANSFERASE 61 U/L (0-55); ALBUMIN 2.4 GM/DL (3.2-4.5); ALKALINE PHOSPHATASE 176 U/L (40-136); BILIRUBIN,TOTAL 0.6 MG/DL (0.1-1.0); BUN/CREATININE RATIO 12; CALCIUM 7.8 MG/DL (8.5-10.1); CARBON DIOXIDE 25 MMOL/L (21-32); CHLORIDE 105 MMOL/L (98-107); GFR ESTIMATED > 60; GLUCOSE 88 MG/DL (70-105); POTASSIUM 3.8 MMOL/L (3.6-5.0); SODIUM 134 MMOL/L (135-145); TOTAL PROTEIN 5.7 GM/DL (6.4-8.2); URIC ACID 4.2 MG/DL (2.6-7.2)
--- NOTE | 2020-11-25 14:00 | NUR ---
Dr. Cordon called and lab results reported. Orders rec'd to keep pt overnight, repeat labs in AM, NST q shift. Pt may have regular diet.
[2020-11-25 14:02] LABS: BAND NEUTROPHILS 9 %; BASOPHILS % (MANUAL) 0 %; EOSINOPHILS % (MANUAL) 1 %; LYMPHOCYTES % (MANUAL) 63 %; MONOCYTES % (MANUAL) 6 %; NEUTROPHILS % (MANUAL) 21 %; RBC MORPH NORMAL
--- NOTE | 2020-11-25 14:20 | NUR ---
Pt c/o heartburn. notified, orders rec'd for tums and pepcid.
[2020-11-25] MEDS ORDERED: CALCIUM CARBONATE 500 MG (TUMS) TAB.CHEW PO PRN (14:30)
[2020-11-25] MEDS: D5 LR IV SOLUTION 1,000 ML IV SCH (14:59)
--- NOTE | 2020-11-25 18:15 | NUR ---
To room to delivery dinner tray and give requested Pepcid. Pt reports starting to feel worse, chilling. Pt noted to be coughing more at this time. VS taken, see intervention.
--- NOTE | 2020-11-25 19:50 | NUR ---
PT REPORTS VERY TIRED, BUT UNABLE TO GET COMFORTABLE IN BED. DENIES ANY FURTHER NEEDS AT THIS TIME. INSTRUCTED TO CALL WITH ANY NEEDS.
[2020-11-25] MEDS ORDERED: FAMOTIDINE 20MG/2ML IV (PEPCID) IVP SCH (21:00)
[2020-11-26] VITALS: BP 106/57
--- NOTE | 2020-11-26 | NUR ---
PT REPORTS SHE IS FEELING SLIGHTLY BETTER AND IS HUNGRY. SANDWICH BOX AND COKE GIVEN PER REQUEST.
[2020-11-26] MEDS: D5 LR IV SOLUTION 1,000 ML IV SCH (00:02)
--- NOTE | 2020-11-26 02:30 | NUR ---
PT RESTING SOUNDLY. NO S/S OF DISTRESS OR DISCOMFORT NOTED.
--- NOTE | 2020-11-26 04:00 | NUR ---
PT SLEEPING SOUNDLY. NO S/S OF DISTRESS OR DISCOMFORT NOTED.
--- NOTE | 2020-11-26 05:15 | NUR ---
LAB HERE FOR AM LABS.
[2020-11-26 05:25] VITALS: BP 101/58
[2020-11-26 05:44] LABS: BASOPHILS # (AUTO) 0.1 10^3/uL (0.0-0.1); BASOPHILS % (AUTO) 1 % (0-10); EOSINOPHILS % (AUTO) 1 % (0-10); HEMATOCRIT 28 % (35-52); HEMOGLOBIN 9.2 g/dL (11.5-16.0); LYMPHOCYTES # (AUTO) 5.8 10^3/uL (1.0-4.0); LYMPHOCYTES % (AUTO) 73 % (12-44); MEAN CORPUSCULAR HEMOGLOBIN 31 pg (25-34); MEAN CORPUSCULAR HGB CONC 33 g/dL (32-36); MEAN CORPUSCULAR VOLUME 96 fL (80-99); MEAN PLATELET VOLUME 11.4 fL (9.0-12.2); MONOCYTES # (AUTO) 0.3 10^3/uL (0.0-1.0); MONOCYTES % (AUTO) 4 % (0-12); NEUTROPHILS # (AUTO) 1.7 10^3/uL (1.8-7.8); NEUTROPHILS % (AUTO) 21 % (42-75); PLATELET COUNT 190 10^3/uL (130-400); WHITE BLOOD COUNT 7.9 10^3/uL (4.3-11.0)
[2020-11-26 06:07] LABS: ALBUMIN 2.2 GM/DL (3.2-4.5); CHLORIDE 107 MMOL/L (98-107); SODIUM 134 MMOL/L (135-145)
[2020-11-26 06:08] LABS: CALCIUM 7.6 MG/DL (8.5-10.1)
[2020-11-26 06:09] LABS: GLUCOSE 93 MG/DL (70-105)
[2020-11-26 06:11] LABS: BILIRUBIN,TOTAL 0.6 MG/DL (0.1-1.0); CARBON DIOXIDE 22 MMOL/L (21-32)
[2020-11-26 06:13] LABS: ALKALINE PHOSPHATASE 162 U/L (40-136); CREATININE SERUM 0.58 MG/DL (0.60-1.30); GFR ESTIMATED > 60
[2020-11-26 06:14] LABS: BUN/CREATININE RATIO 9
[2020-11-26 06:16] LABS: ALANINE AMINOTRANSFERASE 51 U/L (0-55)
--- NOTE | 2020-11-26 07:15 | NUR ---
Dr. Cordon here to see pt. Orders for discharge rec'd.
--- NOTE | 2020-11-26 07:19 | History & Physical ---
History and Physical Date Seen by Provider: Nov 26, 2020 Time Seen by Provider: 07:14 This patient is a 25-year-old gravid patient at 29 weeks gestation. She presented last evening with complaints abdominal pain and episodic shortness of breath primarily in the evenings. She denied loss of smell or loss of taste. She reports having had elevated temperatures at home. She has had some issues with diarrhea as well. She denies dysuria or dyschezia. She was admitted for observation and hydrated and through the evening reports now that she feels markedly better. Covid -19 swab obtained on admission due to the nature of her symptoms has returned a negative result. Patient denies rupture membranes or bleeding. She does feel baby moving. She denies contractions. Allergies are none Medications are vitamins Medical social and surgical histories are per this patient's antepartum record Vital Signs Date Time Temp Pulse Resp B/P (MAP) Pulse Ox O2 Delivery O2 Flow Rate FiO2 11/26/20 05:25 36.7 88 18 101/58 (72) 100 Room Air 11/26/20 00:00 Room Air 11/26/20 00:00 37.0 100 18 106/57 (73) 99 Room Air 11/25/20 18:17 37.6 114 20 111/55 (73) 98 Room Air 11/25/20 15:00 37.2 105 20 108/57 (74) Room Air 11/25/20 12:40 113 18 105/63 (77) Room Air 11/25/20 12:25 105 18 102/59 (73) 100 Room Air 11/25/20 12:10 107 18 97/61 (73) 97 Room Air 11/25/20 11:55 107 18 103/56 (72) 97 Room Air 11/25/20 11:30 36.3 109 20 99 Room Air 11/25/20 11:30 36.3 109 20 99 Room Air 11/25/20 11:30 100 Room Air Vital signs are stable. Patient is afebrile. Lab work is as follows Laboratory Tests Test 11/25/20 12:30 11/25/20 12:35 11/25/20 12:45 11/26/20 05:20 Range/Units Urine Color ORANGE Urine Clarity TURBID Urine pH 5.5 5-9 Urine Specific [place] 1.025 H 1.016-1.022 Urine Protein 36 H 6-12 MG/DL Urine Glucose (UA) NEGATIVE NEGATIVE Urine Ketones NEGATIVE NEGATIVE Urine Nitrite NEGATIVE NEGATIVE Urine Bilirubin 1+ H NEGATIVE Urine Urobilinogen 1.0 < = 1.0 MG/DL Urine Leukocyte Esterase NEGATIVE NEGATIVE Urine RBC (Auto) NEGATIVE NEGATIVE Urine RBC RARE /HPF Urine WBC NONE /HPF Urine Squamous Epithelial Cells 10-25 H /HPF Urine Crystals PRESENT H /LPF Urine Amorphous Sediment MOD [place] URATES H /LPF Urine Bacteria NEGATIVE /HPF Urine Casts NONE /LPF Urine Mucus NEGATIVE /LPF Urine Culture Indicated NO Urine Creatinine 192 H 30-125 MG/DL Urine Protein/Creatinine Ratio 0.19 Coronavirus (COVID-19)(PCR) Negative Negative White Blood Count 9.1 7.9 4.3-11.0 10^3/uL Red Blood Count 3.15 L 2.95 L 3.80-5.11 10^6/uL Hemoglobin 9.7 L 9.2 L 11.5-16.0 g/dL Hematocrit 30 L 28 L 35-52 % Mean Corpuscular Volume 95 96 80-99 fL Mean Corpuscular Hemoglobin 31 31 25-34 pg Mean Corpuscular Hemoglobin Concent 32 33 32-36 g/dL Red Cell Distribution Width 14.6 H 14.7 H 10.0-14.5 % Platelet Count 192 190 130-400 10^3/uL Mean Platelet Volume 12.0 11.4 9.0-12.2 fL Immature Granulocyte % (Auto) 1 1 % Neutrophils (%) (Auto) 24 L 21 L 42-75 % Lymphocytes (%) (Auto) 71 H 73 H 12-44 % Monocytes (%) (Auto) 3 4 0-12 % Eosinophils (%) (Auto) 0 1 0-10 % Basophils (%) (Auto) 1 1 0-10 % Neutrophils # (Auto) 2.2 1.7 L 1.8-7.8 10^3/uL Lymphocytes # (Auto) 6.4 H 5.8 H 1.0-4.0 10^3/uL Monocytes # (Auto) 0.3 0.3 0.0-1.0 10^3/uL Eosinophils # (Auto) 0.0 0.0 0.0-0.3 10^3/uL Basophils # (Auto) 0.1 0.1 0.0-0.1 10^3/uL Immature Granulocyte # (Auto) 0.1 0.1 0.0-0.1 10^3/uL Neutrophils % (Manual) 21 % Lymphocytes % (Manual) 63 % Monocytes % (Manual) 6 % Eosinophils % (Manual) 1 % Basophils % (Manual) 0 % Band Neutrophils 9 % Blood Morphology Comment NORMAL Sodium Level 134 L 134 L 135-145 MMOL/L Potassium Level 3.8 4.0 3.6-5.0 MMOL/L Chloride Level 105 107 98-107 MMOL/L Carbon Dioxide Level 25 22 21-32 MMOL/L Anion Gap 4 L 5 5-14 MMOL/L Blood Urea Nitrogen 7 5 L 7-18 MG/DL Creatinine 0.60 0.58 L 0.60-1.30 MG/DL Estimat Glomerular Filtration Rate > 60 > 60 BUN/Creatinine Ratio 12 9 Glucose Level 88 93 70-105 MG/DL Uric Acid 4.2 2.6-7.2 MG/DL Calcium Level 7.8 L 7.6 L 8.5-10.1 MG/DL Corrected Calcium 9.1 9.0 8.5-10.1 MG/DL Total Bilirubin 0.6 0.6 0.1-1.0 MG/DL Aspartate Amino Transf (AST/SGOT) 65 H 53 H 5-34 U/L Alanine Aminotransferase (ALT/SGPT) 61 H 51 0-55 U/L Alkaline Phosphatase 176 H 162 H 40-136 U/L Lactate Dehydrogenase 430 H 367 H 125-220 U/L Total Protein 5.7 L 5.0 L 6.4-8.2 GM/DL Albumin 2.4 L 2.2 L 3.2-4.5 GM/DL HEENT exam is normal Neck is supple no lymphadenopathy no thyromegaly The abdomen is gravid and benign. The fundus is nontender. There is no guarding or rebound. Extremities show no clubbing or cyanosis. There is no Homans' sign. Pelvic exam was deferred Assessment and plan this patient's history and presentation are most consistent with a viral gastroenteritis. Her liver enzymes were elevated on admission there is still elevated but are decreasing as is her the LDH, and we will follow the lab workup in clinic. Her blood pressures have been normal. This patient has remained afebrile since admission. We will allow discharge home with follow-up in clinic Viral gastroenteritis Allergies and Home Medications Allergies Coded Allergies: No Known Drug Allergies (Unverified , 01/02/17) Home Medications Mjb041/FA/Omega3/Dha/Fish Oil 1 Each Tab.chew, 1 EACH PO DAILY, (Reported) Patient Home Medication List Home Medication List Reviewed: Yes RODRIGUEZ CORDERO MD Nov 26, 2020 07:19
--- NOTE | 2020-11-26 07:29 | Discharge Inst-Surgical ---
Discharge Inst-Surgical Depart Medication/Instructions New, Converted or Re-Newed RX: Other Consults/Follow Up Patient Instructions: As directed Orders & Referrals Return to clinic as scheduled for OB follow-up Return to clinic for any recurrence of symptoms or signs symptoms or indications of labor Activity Activity as Tolerated: Yes Diet Discharge Diet: No Restrictions RODRIGUEZ CORDERO MD Nov 26, 2020 07:29
[2020-11-26 08:25] VITALS: BP 108/56
--- NOTE | 2020-11-26 09:16 | NUR ---
Discharge instructions explained to pt with copy provided to pt. Pt verbalizes understanding of instructions and signs to verify. IV removed, tip intact. Pt ambulates off unit to private vehicle with all personal belongings. No s/s of distress noted. Addendum: 11/26/20 at 1105 by JUAN DIAZ RN Reactive NST obtained.
== END 2020-11-26 09:16 | disposition home or self-care (01) ==
LOC: WSo 11:10 → LDRP 11:11 → WSo 11:11 → LDRP 11:15 → UNDOADMOB 14:05 → LDRP 14:05 → WSo 14:05 → UNDODISOB 11-26 09:16 → EDSTATUS 11-29 07:40
PROVIDERS: ADMIT Obstetrics & Gynecology; ATTEND Obstetrics & Gynecology
DX: Z34.93 Encounter for supervision of normal pregnancy, unspecified, third trimester (principal); Z3A.29 29 weeks gestation of pregnancy
CPT/HCPCS: 80053 ×2; 81000; 82570; 83615 ×2; 84156; 84550; 85007; 85025; 85027; 96361 ×2; 96374; G0378; G0379; U0002; 36415; 87635; 99211

== ENCOUNTER 2020-11-28 11:02 | Outpatient (CLI) | payer MEDICAID ==
[~2020-11-28] VITALS: Ht 154.9 cm; Wt 66.3 kg
--- NOTE | 2020-11-28 11:00 | NUR ---
HALEIGH HERNANDEZ presented to unit via ambulation from ED, accompanied by self, with c/o SWELLING. HALEIGH HERNANDEZ weighed, gowned, voided, and to bed. EFHM and TOCO applied, VS taken. HALEIGH HERNANDEZ oriented to bed controls, call light, TV, heat, and A/C controls.
[2020-11-28 11:20] VITALS: BP 103/62
[2020-11-28] MEDS ORDERED: D5 LR IV SOLUTION 1,000 ML IV SCH (12:00)
[2020-11-28 12:03] LABS: BILIRUBIN,URINE NEGATIVE (NEGATIVE); COLOR,URINE DARK YELLOW; GLUCOSE, URINE (UA) NEGATIVE (NEGATIVE); KETONES,URINE NEGATIVE (NEGATIVE); LEUKOCYTE ESTERASE ,URINE NEGATIVE (NEGATIVE); NITRITE,URINE NEGATIVE (NEGATIVE); PH,URINE 5.5 (5-9); PROTEIN,URINE NEGATIVE (NEGATIVE)
[2020-11-28 12:14] LABS: AMORPHOUS SEDIMENT,UR LARGE AMOR URATES /LPF; BACTERIA,URINE NEGATIVE /HPF; CLARITY,URINE CLOUDY; RBC,URINE 0-2 /HPF; WBC,URINE 0-2 /HPF
[2020-11-28 12:35] LABS: ALANINE AMINOTRANSFERASE 45 U/L (0-55); ALBUMIN 2.3 GM/DL (3.2-4.5); ALKALINE PHOSPHATASE 213 U/L (40-136); BILIRUBIN,TOTAL 0.5 MG/DL (0.1-1.0); BUN/CREATININE RATIO 12; CALCIUM 7.5 MG/DL (8.5-10.1); CARBON DIOXIDE 24 MMOL/L (21-32); CHLORIDE 104 MMOL/L (98-107); CREATININE SERUM 0.58 MG/DL (0.60-1.30); GFR ESTIMATED > 60; GLUCOSE 127 MG/DL (70-105); POTASSIUM 3.7 MMOL/L (3.6-5.0); SODIUM 134 MMOL/L (135-145); TOTAL PROTEIN 5.5 GM/DL (6.4-8.2)
--- NOTE | 2020-11-28 12:44 | NUR ---
dr ramirez notified of patient lab results. new orders received.
--- NOTE | 2020-11-28 13:10 | NUR ---
out of WS via ambulation to home self care. no s/s of distress noted.
--- NOTE | 2020-11-29 08:19 | Physician Query-Final Dx ---
ORALIA MEEKS 11/29/20 0819: Clinic Account Progress/Dx Physician Query: Please give diagnosis Please include # weeks gestation Date of Service Nov 28, 2020 at 11:02 RODRIGUEZ CORDERO MD 11/29/20 0840: Clinic Account Progress/Dx DIAGNOSIS: Diagnosis 27 weeks' gestation with pretibial edema and history of viral gastroenteritis ORALIA MEEKS Nov 29, 2020 08:19 RODRIGUEZ CORDERO MD Nov 29, 2020 08:40
== END 2020-11-28 13:10 | disposition home or self-care (01) ==
LOC: LDRP 11:02 → WSo 11:02
PROVIDERS: ATTEND Obstetrics & Gynecology
DX: O26.892 Other specified pregnancy related conditions, second trimester (principal); Z3A.27 27 weeks gestation of pregnancy
CPT/HCPCS: 80053; 81000; 82570; 83615; 84156; 96360; G0463; 36415; 99213

== ENCOUNTER 2020-12-26 10:58 | Outpatient (CLI) | payer MEDICAID ==
[~2020-12-26] VITALS: Ht 155 cm; Wt 66.7 kg
[~2020-12-26 10:58] MED LIST changes: -OXYC-471 PO; +OXYC1TAB11 PO
[2020-12-26 11:20] VITALS: BP 103/59
[2020-12-26 12:00] VITALS: BP 103/59
[2020-12-26] MEDS ORDERED: D5 LR IV SOLUTION 1,000 ML IV SCH (12:15)
--- NOTE | 2020-12-27 07:56 | Physician Query-Final Dx ---
ORALIA MEEKS 12/27/20 0756: Clinic Account Progress/Dx Physician Query: Please give diagnosis Please include # weeks gestation Date of Service Dec 26, 2020 at 10:58 RODRIGUEZ CORDERO MD 12/27/20 1525: Clinic Account Progress/Dx DIAGNOSIS: Diagnosis 31 weeks with false labor ORALIA MEEKS Dec 27, 2020 07:56 RODRIGUEZ CORDERO MD Dec 27, 2020 15:25
== END 2020-12-26 14:57 | disposition home or self-care (01) ==
LOC: WSo 10:58 → LDRP 11:05 → WSo 14:57
PROVIDERS: ATTEND Obstetrics & Gynecology
DX: O26.893 Other specified pregnancy related conditions, third trimester (principal); Z3A.31 31 weeks gestation of pregnancy
CPT/HCPCS: 96360; 96361; G0463; 99214

== ENCOUNTER 2021-01-13 09:09 | Outpatient (CLI) | payer MEDICAID ==
[~2021-01-13] VITALS: Ht 154.9 cm; Wt 66.0 kg
[2021-01-13 09:35] VITALS: BP 106/58
[2021-01-13 09:52] LABS: BILIRUBIN,URINE NEGATIVE (NEGATIVE); CLARITY,URINE CLEAR; COLOR,URINE YELLOW; GLUCOSE, URINE (UA) NEGATIVE (NEGATIVE); KETONES,URINE NEGATIVE (NEGATIVE); LEUKOCYTE ESTERASE ,URINE 2+ (NEGATIVE); NITRITE,URINE NEGATIVE (NEGATIVE); PROTEIN,URINE NEGATIVE (NEGATIVE)
[2021-01-13 10:15] LABS: BACTERIA,URINE FEW /HPF
[2021-01-13] MEDS ORDERED: D5 LR IV SOLUTION 1,000 ML IV ONE (10:19)
[2021-01-13] MEDS ORDERED: D5 LR IV SOLUTION 1,000 ML IV SCH (10:30)
[2021-01-13 10:50] LABS: BASOPHILS % (AUTO) 0 % (0-10); EOSINOPHILS # (AUTO) 0.1 10^3/uL (0.0-0.3); EOSINOPHILS % (AUTO) 1 % (0-10); HEMATOCRIT 30 % (35-52); HEMOGLOBIN 9.7 g/dL (11.5-16.0); LYMPHOCYTES % (AUTO) 25 % (12-44); MEAN CORPUSCULAR HEMOGLOBIN 30 pg (25-34); MEAN CORPUSCULAR HGB CONC 33 g/dL (32-36); MEAN CORPUSCULAR VOLUME 91 fL (80-99); MEAN PLATELET VOLUME 10.2 fL (9.0-12.2); MONOCYTES # (AUTO) 0.5 10^3/uL (0.0-1.0); MONOCYTES % (AUTO) 6 % (0-12); NEUTROPHILS # (AUTO) 5.4 10^3/uL (1.8-7.8); NEUTROPHILS % (AUTO) 68 % (42-75); PLATELET COUNT 283 10^3/uL (130-400)
[2021-01-13] MEDS ORDERED: FLUO40CA12 PO (11:38)
[2021-01-13] MEDS ORDERED: PREN1TAB79 PO (11:38)
--- NOTE | 2021-01-14 07:55 | Physician Query-Final Dx ---
ORALIA MEEKS 01/14/21 0755: Clinic Account Progress/Dx Physician Query: Please give diagnosis Please include # weeks gestation Date of Service Jan 13, 2021 at 09:09 RODRIGUEZ CORDERO MD 01/15/21 0756: Clinic Account Progress/Dx DIAGNOSIS: Diagnosis False labor at 34 weeks gestation ORALIA MEEKS Jan 14, 2021 07:55 RODRIGUEZ CORDERO MD Jan 15, 2021 07:56
== END 2021-01-13 11:54 | disposition home or self-care (01) ==
LOC: WSo 09:09 → LDRP 09:09 → WSo 11:54
PROVIDERS: ATTEND Obstetrics & Gynecology
DX: O26.893 Other specified pregnancy related conditions, third trimester (principal); Z3A.34 34 weeks gestation of pregnancy
CPT/HCPCS: 36415; 81000; 85025; 87088

== ENCOUNTER 2021-02-10 05:40 | Outpatient (CLI) | payer MEDICAID ==
[~2021-02-10] VITALS: Ht 154.9 cm; Wt 67.7 kg
[~2021-02-10 05:40] MED LIST changes: +FLUO40CA12 PO; +PREN1TAB79 PO
== END 2021-02-10 14:18 | disposition home or self-care (01) ==
LOC: PREOP 05:40 → EDSTATUS 11:00 → PREOP 14:18
PROVIDERS: ATTEND Obstetrics & Gynecology
DX: Z01.818 Encounter for other preprocedural examination (principal)

== ENCOUNTER 2021-02-14 06:05 | Inpatient (IN) | payer MEDICAID ==
[2021-02-14] VITALS (15 sets, daily range): BP systolic 96–120; BP diastolic 53–73
[~2021-02-14] VITALS: Ht 154.9 cm; Wt 66.8 kg
[~2021-02-14 06:05] MED LIST changes: +CITRIC ACID/SOB CIT (BICITRA) 30 ML UDC ONE; +FAMOTIDINE 20MG/2ML IV (PEPCID) ONE; +LACTATED RINGERS 1,000 ML IV ONE; +METOCLOPRAMIDE INJ 10 MG/2 ML (REGLAN) ONE
[2021-02-14] MEDS ORDERED: D5 LR IV SOLUTION 1,000 ML IV SCH ×2 (06:15→08:45)
[2021-02-14] MEDS ORDERED: LACTATED RINGERS 1,000 ML IV SCH ×2 (06:15)
[2021-02-14] MEDS ORDERED: FAMOTIDINE 20MG/2ML IV (PEPCID) IV ONE (06:15)
[2021-02-14] MEDS ORDERED: METOCLOPRAMIDE INJ 10 MG/2 ML (REGLAN) IV ONE (06:15)
[2021-02-14] MEDS ORDERED: metroNIDAZOLE 500MG/100ML IVPB 100 ML IV ONE (06:15)
[2021-02-14] MEDS ORDERED: ceFAZolin INJECTION 2,000 MG in WATER (STERILE) FOR INJECTION 10 ML IV ONE (06:15)
[2021-02-14] MEDS ORDERED: CITRIC ACID/SOB CIT (BICITRA) 30 ML UDC PO ONE (06:15)
[2021-02-14] MEDS ORDERED: DIPH50CA75 PO (06:35)
[2021-02-14] MEDS ORDERED: FLUO20CA42 PO (06:35)
[2021-02-14] MEDS ORDERED: ceFAZolin 2 GM IV Premixed 50 ML ONE (06:50)
[2021-02-14 06:58] LABS: BASOPHILS % (AUTO) 0 % (0-10); EOSINOPHILS # (AUTO) 0.1 10^3/uL (0.0-0.3); EOSINOPHILS % (AUTO) 1 % (0-10); HEMATOCRIT 31 % (35-52); LYMPHOCYTES # (AUTO) 2.1 10^3/uL (1.0-4.0); LYMPHOCYTES % (AUTO) 26 % (12-44); MEAN CORPUSCULAR HEMOGLOBIN 29 pg (25-34); MEAN CORPUSCULAR HGB CONC 32 g/dL (32-36); MEAN CORPUSCULAR VOLUME 91 fL (80-99); MEAN PLATELET VOLUME 10.1 fL (9.0-12.2); MONOCYTES # (AUTO) 0.5 10^3/uL (0.0-1.0); MONOCYTES % (AUTO) 6 % (0-12); NEUTROPHILS # (AUTO) 5.3 10^3/uL (1.8-7.8); NEUTROPHILS % (AUTO) 65 % (42-75); PLATELET COUNT 303 10^3/uL (130-400); WHITE BLOOD COUNT 8.1 10^3/uL (4.3-11.0)
[2021-02-14] MEDS ORDERED: ONDANSETRON 4 MG/2 ML (SDV) Z0FRAN ONE (07:01)
[2021-02-14] MEDS ORDERED: fentaNYL INJ 100 MCG/2 ML AMP ONE (07:01)
[2021-02-14] MEDS ORDERED: OXYTOCIN PRE-MIX DRIP 1,000 ML IV ONE (07:11)
[2021-02-14] MEDS ORDERED: HYDROmorphone 2 MG/ML VIAL (DILAUDID) IV ONE (07:15)
[2021-02-14] MEDS ORDERED: ONDANSETRON 4 MG/2 ML (SDV) Z0FRAN IVP PRN ×2 (07:15→08:45)
[2021-02-14] MEDS ORDERED: KETOROLAC 30 MG/ML VIAL ONE (07:58)
[2021-02-14] MEDS ORDERED: PHENYLEPHRINE 100 MCG/ML 10 ML (ANESTHESIA) SYR ONE (07:59)
[2021-02-14] MEDS: KETOROLAC 30 MG/ML VIAL IVP SCH ×3 (08:05→20:34)
[2021-02-14] MEDS ORDERED: ROPIVACAINE 5MG/ML 30ML VIAL ONE (08:28)
[2021-02-14] MEDS ORDERED: MEASLES,MUMPS,RUBELLA 1 EA INJ SC ONE (08:45)
[2021-02-14] MEDS ORDERED: oxyCODONE/APAP 10/325MG (PERCOCET 10) TABLET PO PRN (08:45)
[2021-02-14] MEDS ORDERED: OXYTOCIN PRE-MIX DRIP 500 ML IV SCH (08:45)
[2021-02-14] MEDS ORDERED: TETANUS,DIPTH,PERTUSS P/F (BOOSTRIX) 0.5 ML VIAL IM ONE (08:45)
[2021-02-14] MEDS ORDERED: fentaNYL INJ 100 MCG/2 ML AMP IVP PRN (08:45)
[2021-02-14] MEDS ORDERED: DOCUSATE SODIUM 100 MG (COLACE) CAP PO SCH (09:00)
[2021-02-14] MEDS: DOCUSATE SODIUM 100 MG (COLACE) CAP PO SCH ×2 (10:54→20:34)
--- NOTE | 2021-02-14 12:33 | History & Physical ---
History and Physical Date Seen by Provider: Feb 14, 2021 Time Seen by Provider: 07:25 This patient is a 25-year-old 2 para 1 1 white female who presents with repeat . She denies rupture membranes or bleeding. Her GBS culture was negative. This has been complicated by depression - that has been barely adequately controlled with medication. Made to go ahead with repeat to end the due to patient intolerance of and progression of her depression. Allergies are none Medications are vitamins Medical social and surgical history is all per the antepartum record HEENT exam is normal Neck is supple no lymphadenopathy no thyromegaly Abdomen is gravid soft nontender nondistended Extremities show no clubbing cyanosis. There is no Homans' sign. Assessment and plan 38+ week gestation admitted for repeat delivery 38 week IUP with previous Allergies and Home Medications Allergies Coded Allergies: No Known Drug Allergies (Unverified , 01/02/17) Home Medications Diphenhydramine HCl 50 Mg Capsule, 50 MG PO HS PRN for SLEEP, (Reported) Docusate Sodium 100 Mg Capsule, 100 MG PO BID Prescribed by: RODRIGUEZ ARMANDO on 02/14/21 172 Fluoxetine HCl 20 Mg Capsule, 20 MG PO DAILY, (Reported) Ibuprofen 800 Mg Tablet, 800 MG PO Q6H Prescribed by: RODRIGUEZ ARMANDO on 02/14/21 1720 Oxycodone HCl/Acetaminophen 1 Each Tablet, 1 TAB PO Q4HR PRN for PAIN-MODERATE (5-7) Prescribed by: RODRIGUEZ ARMANDO on 02/14/21 1720 Vit W-Ca,Fe,FA(<1 mg) 1 Each Tablet, 1 EACH PO DAILY, (Reported) Patient Home Medication List Home Medication List Reviewed: Yes RODRIGUEZ CORDERO MD Feb 14, 2021 12:33
--- NOTE | 2021-02-14 14:31 | OPERATIVE REPORT ---
DATE OF SERVICE: 02/14/2021 PREOPERATIVE DIAGNOSIS: Term with previous . POSTOPERATIVE DIAGNOSIS: Term with previous . OPERATIVE PROCEDURE: Repeat low transverse delivery of viable female with Apgars of 8 and 9 at 1 and 5 minutes respectively, weight of 6 pounds 15 ounces. time of 0753 and a cord blood pH of 7.13. OPERATIVE DESCRIPTION: With the patient in supine position under satisfactory spinal analgesia, she was prepped and draped in the usual fashion for abdominal surgery. A repeat Pfannenstiel incision was made through skin with scalpel, the patient's abdomen entered in the usual manner. Bladder retractor placed in position, clean scalpel used to make a 4 cm hysterotomy incision transversely across the lower uterine segment. That incision was extended by blunt dissection. Gonzalez forceps were applied to facilitate the delivery of a vigorous viable female infant. The infant had Apgars and stats as noted above. The was bulb suctioned on delivery of the head and again on completion of delivery. The umbilical cord was doubly clamped and cut and the infant passed to the pediatric nurse in attendance for delivery. Cord bloods were obtained. Placenta delivered spontaneously Costa. It was normal with a 3-vessel cord. The uterus was exteriorized and interior wiped clean with a wet laparotomy sponge. Uterine incision closed with running locked suture of 2-0 Vicryl. Hemostasis was complete. The uterus was returned to the abdominal cavity. All blood clot and debris removed from the abdominal cavity. Sponge and needle counts correct, hemostasis assured. The anterior parietal peritoneum was closed with running suture of 2-0 Vicryl. Rectus muscles were closed with that suture as well. The rectus fascia was closed with 2-0 Vicryl, subcutaneous tissue was closed with 2-0 Vicryl and the skin was stapled. Sponge and needle counts were correct on completion of procedure. Estimated blood loss was around 500 mL. The patient tolerated the procedure well and was transferred to the recovery room in stable condition. The infant remained with the mom. Job ID: [id number] DocumentID: [id number] Dictated Date: 02/14/2021 08:10:08 Accounts Receivable Assistant Date: 02/14/2021 14:30:21 Dictated By: RODRIGUEZ CORDERO MD
[2021-02-14] MEDS ORDERED: IBUP-1780 PO (17:20)
[2021-02-14] MEDS ORDERED: OXYC1TAB12 PO (17:20)
[2021-02-14] MEDS ORDERED: DCS100C PO (17:20)
--- NOTE | 2021-02-14 17:21 | Discharge Inst-Surgical ---
Discharge Inst-Surgical Depart Medication/Instructions New, Converted or Re-Newed RX: RX on Chart Consults/Follow Up Patient Instructions: as directed Orders & Referrals Follow Up Appt: RTC 1 week for incision check. Call to make follow up appt. for patient in 4 weeks. Wound Care: Remove nicole, apply benzoin and steri strips. Activity Per routine post instructions. Please call in RX to patient pharmacy. Diet as tolerated Patient may shower or tub bathe as desired. Continue home meds Activity Activity as Tolerated: No Diet Discharge Diet: No Restrictions RODRIGUEZ CORDERO MD Feb 14, 2021 17:21
[2021-02-15 00:20] VITALS: BP 114/62
[2021-02-15 03:53] VITALS: BP 108/58
[2021-02-15] MEDS: KETOROLAC 30 MG/ML VIAL IVP SCH (03:53)
[2021-02-15 08:15] VITALS: BP 108/65
--- NOTE | 2021-02-15 08:40 | Progress Note ---
Standard Progress Note Progress Notes/Assess & Plan Date Seen by a Provider: Feb 15, 2021 Time Seen by a Provider: 08:39 Progress/Assessment & Plan This patient is without complaint. She is ambulating, voiding, tolerating oral intake well has good pain control. Patient is requesting discharge home. Vital Signs Date Time Temp Pulse Resp B/P (MAP) Pulse Ox O2 Delivery O2 Flow Rate FiO2 02/15/21 03:53 37.1 98 18 108/58 (75) 98 Room Air 02/15/21 00:20 36.5 106 18 114/62 (79) 98 Room Air 02/14/21 20:34 37.2 96 18 110/64 (79) 98 Room Air 02/14/21 16:49 37.1 105 18 120/73 (89) 97 Room Air 02/14/21 12:00 101 18 99/57 (71) Room Air 02/14/21 11:30 36.5 85 20 96/53 (67) 100 Room Air 02/14/21 11:00 83 20 102/55 (71) 100 Room Air 02/14/21 10:30 77 20 104/56 (72) 100 Room Air 02/14/21 10:00 78 20 100/61 (74) 100 Room Air 02/14/21 09:30 36.4 86 20 105/53 (70) 100 Room Air 02/14/21 09:05 Room Air 02/14/21 09:05 36.5 18 101/59 (73) 100 Room Air 02/14/21 08:45 Room Air 02/14/21 08:45 36.4 18 101/60 (74) 99 Room Air I & O 02/15/21 07:00 Intake Total 4910 ml Output Total 2650 ml Balance 2260 ml Vital signs are stable. Patient is afebrile. The abdomen is benign. Extremities show no clubbing or cyanosis. There is no Homans' sign. Assessment and plan postoperative day #1 status post repeat doing well. Plan will be to allow patient discharge home and have follow-up in clinic Final Diagnosis 38-week repeat delivery RODRIGUEZ CORDERO MD Feb 15, 2021 08:40
[2021-02-15] MEDS ORDERED: ACETAMINOPHEN 500 MG TAB (TYLENOL) PO ONE (09:00)
[2021-02-15] MEDS: DOCUSATE SODIUM 100 MG (COLACE) CAP PO SCH (09:11)
--- NOTE | 2021-02-15 15:11 | Anesthesia-Regional Post-Op ---
Regional Patient Condition Mental Status: Alert, Oriented x3 Circulation: Same as Pre-Op Headache: Absent Sensation: Full Recovery Motor Block: Absent Post Op Complications Complications None Follow Up Care/Instructions Patient Instructions None needed. Anesthesia/Patient Condition Patient is doing well, no complaints, stable vital signs, no apparent adverse anesthesia problems. No complications reported per nursing. RYAN SHABAZZ CRNA Feb 15, 2021 15:11
[2021-02-19] MEDS ORDERED: IBUPROFEN 800 MG (MOTRIN) TAB PO SCH (08:45)
== END 2021-02-15 16:45 | disposition home or self-care (01) | DRG 788 ==
LOC: LDRP 06:05 → WS 08:02 → LDRP 10:53
PROVIDERS: ADMIT Obstetrics & Gynecology; ATTEND Obstetrics & Gynecology
PROC: 10D00Z1 Extraction of Products of Conception, Low, Open Approach (ICD-10-PCS; principal; 2021-02-14 07:30)
DX: O34.211 Maternal care for low transverse scar from previous cesarean delivery (principal); Z3A.38 38 weeks gestation of pregnancy; Z37.0 Single live birth; O99.344 Other mental disorders complicating childbirth; F32.9 Major depressive disorder, single episode, unspecified
CPT/HCPCS: 36415; 85025; 86850; 86900; 86901; 87081

== ENCOUNTER → 2021-03-19 | Outpatient (CLI) | payer MEDICAID ==
[~2021-03-19] MED LIST changes: -CITRIC ACID/SOB CIT (BICITRA) 30 ML UDC ONE; +DCS100C PO; +DIPH50CA75 PO; -FAMOTIDINE 20MG/2ML IV (PEPCID) ONE; +FLUO20CA42 PO; +IBUP-1780 PO; -LACTATED RINGERS 1,000 ML IV ONE; -METOCLOPRAMIDE INJ 10 MG/2 ML (REGLAN) ONE; +OXYC1TAB12 PO
--- NOTE | 2021-03-19 10:46 | Diagnostic Imaging Report ---
INDICATION: Palpable lump for 2 weeks in the right breast. Patient has been breast feeding for 1 month. Sonographic interrogation of the area of palpable lump right breast was performed. There is a lobulated hypoechoic mass at the 12:30 location, 8 cm from the nipple measuring 3.1 x 1.8 x 3.7 cm. There is blood flow along the margins but no definite internal blood flow is seen. There does appear to be some posterior acoustic enhancement. No other masses are identified. IMPRESSION: Somewhat irregular hypoechoic mass at the 12:30 location right breast, corresponding to the patient's palpable abnormality. Due to the patient's age, breast neoplasm would be considered much less likely. Infectious process or small abscess could produce this appearance. Lactating adenoma would be an additional consideration. Short interval follow-up ultrasound in 4-6 weeks after course of therapy is recommended to evaluate for stability or resolution. If this persists, tissue sampling is recommended. This would be amenable to ultrasound-guided core biopsy. BI-RADS Category 3 ACR BI-RADS Category 3: Probably benign findings. Dictated by: Dictated on workstation # [id number]
== END ==
LOC: RAD 09:02
PROVIDERS: ATTEND Obstetrics & Gynecology
DX: N63.11 Unspecified lump in the right breast, upper outer quadrant (principal)

== ENCOUNTER → 2021-04-03 | Outpatient (CLI) | payer MEDICAID ==
--- NOTE | 2021-04-03 09:39 | Diagnostic Imaging Report ---
Indication: Palpable lump right breast. Patient has been on antibiotics for the last 2 weeks. Reportedly known mass in the right breast is increasing in size. No prior mammograms are available for comparison. 2-D and 3-D bilateral diagnostic mammography was performed with CAD. BB marker was placed at the area of palpable abnormality in the upper right breast. Both breasts are heterogeneously dense, limiting the sensitivity of mammography. There is a rounded mass in the superior posterior right breast corresponding to the palpable abnormality. This measures approximately 3 cm in size. No malignant appearing microcalcifications are seen. Axillae are unremarkable. IMPRESSION: BI-RADS 0 Rounded mass in the superior right breast posterior depth corresponding to the palpable abnormality. Further evaluation with ultrasound is recommended and will be performed today. ACR BI-RADS Category 0: Incomplete. (Needs additional imaging evaluation). Result letter will be mailed to the patient. Note: At least 10% of breast cancer is not imaged by mammography. Dictated by: Dictated on workstation # [id number]
--- NOTE | 2021-04-03 10:09 | Diagnostic Imaging Report ---
INDICATION: A right breast lump. This reportedly has been increasing in size over last 2 weeks. Patient is currently lactating. Correlation is made with right breast ultrasound from 03/19/2021. A mixed solid and cystic hypoechoic irregular mass 12:30 location right breast is again noted. This does appear to be increased in size measuring 3.2 x 4.2 x 1.7 cm compared with approximately 3.1 x 1.8 x 3.7 cm. There does appear to be some blood flow along the margins and within the more solid components. No other abnormalities are seen. IMPRESSION: BI-RADS Category 3 There has been some increase in size of the irregular hypoechoic mixed solid and cystic mass at the 12:30 location of the right breast when compared with exam from 03/19/2021. In a lactating female of a patient this age, primary considerations include galactocele, lactating adenoma or a breast abscess. Continued close clinical followup is recommended. Core biopsy of this lesion or attempted aspiration could be performed if clinically indicated. ACR BI-RADS Category 3: Probably benign findings. Result letter will be mailed to the patient. Note: At least 10% of breast cancer is not imaged by mammography. Dictated by: Dictated on workstation # [id number]
== END ==
LOC: RAD 09:09
PROVIDERS: ATTEND Obstetrics & Gynecology
DX: N63.12 Unspecified lump in the right breast, upper inner quadrant (principal)
CPT/HCPCS: 76642; 77066; G0279; 77062

== ENCOUNTER → 2022-04-23 | Outpatient (CLI) | payer MEDICAID ==
[~2022-04-23] MED LIST changes: +ACHD5005 PO; -DCS100C PO; +DOCU-239 PO
== END | disposition home or self-care (01) ==
LOC: PREOP 05:36
PROVIDERS: ATTEND Obstetrics & Gynecology
DX: Z01.818 Encounter for other preprocedural examination (principal)